=== PATIENT | male | born 1960 | race Caucasian/White ===

== ENCOUNTER 2017-01-23 04:34 | Emergency (ER) | payer MEDICAID ==
--- NOTE | 2017-01-23 06:20 | ER Document Report ---
ED General - General Chief Complaint: Shortness Of Breath Stated Complaint: DIFFICULTY BREATHING Mode of Arrival: Medic Information source: Patient, [facility] Records Notes: This is a 56-year-old male with a history of CHF hypertension and diabetes who presents via EMS for worsening orthopnea for the past 2 or 3 days. Patient has a history of poor medication compliance and tells me that he has been out of all of his medicines for the past several months. He states that he feels that he has fluid on his lungs when he lays flat. However, when he sitting up he says he has no shortness of breath. He denies any chest pain. He has had no fevers or chills. No cough or congestion. TRAVEL OUTSIDE OF THE [place] IN LAST 30 DAYS: No - Related Data Allergies/Adverse Reactions: No Known Allergies Allergy (Verified 08/13/16 09:02) Past Medical History - General Information source: Patient, [facility] Records - Social History Smoking Status: Former Smoker Chew tobacco use (# tins/day): No Frequency of alcohol use: None Drug Abuse: None Family History: CVA, DM Patient has suicidal ideation: No Patient has homicidal ideation: No - Past Medical History Cardiac Medical History: Reports: Hx Congestive Heart Failure, Hx Heart Attack - x 2, Hx Hypertension Denies: Hx Coronary Artery Disease Pulmonary Medical History: Denies: Hx Asthma, Hx Bronchitis, Hx COPD, Hx Pneumonia, Hx Tuberculosis Neurological Medical History: Denies: Hx Cerebrovascular Accident, Hx Seizures Endocrine Medical History: Reports: Hx Diabetes Mellitus Type 1, Hx Diabetes Mellitus Type 2 Renal/ Medical History: Denies: Hx Peritoneal Dialysis Musculoskeltal Medical History: Reports Hx Arthritis Infectious Medical History: Reports: Hx MRSA Past Surgical History: Reports: Hx Orthopedic Surgery - back,feet, ankle,left arm. Denies: Hx Pacemaker - Immunizations Hx Diphtheria, Pertussis, Tetanus Vaccination: Yes Review of Systems - Review of Systems Notes: REVIEW OF SYSTEMS: CONSTITUTIONAL : Denies fever, chills, or sweats. Denies recent illness. EENT: Denies eye, ear, throat, or mouth pain or symptoms. Denies nasal or sinus congestion. CARDIOVASCULAR: Denies chest pain. RESPIRATORY: Denies cough, cold, or chest congestion. Otherwise as per history of present illness GASTROINTESTINAL: Denies abdominal pain. Denies nausea, vomiting, or diarrhea. Denies constipation. GENITOURINARY: Denies difficulty urinating, painful urination, burning, frequency, or blood in urine. MUSCULOSKELETAL: Denies neck or back pain or joint pain or swelling. SKIN: Denies rash or skin lesions. HEMATOLOGIC : Denies easy bruising or bleeding. LYMPHATIC: Denies swollen, enlarged glands. NEUROLOGICAL: Denies altered mental status or loss of consciousness. Denies headache. PSYCHIATRIC: Denies anxiety or stress or depression. ALL OTHER SYSTEMS REVIEWED AND NEGATIVE. Physical Exam - Vital signs Vitals: Temp Pulse Resp BP Pulse Ox 98.7 F 89 16 98/69 L 99 01/23/17 04:47 01/23/17 04:47 01/23/17 04:47 01/23/17 04:47 01/23/17 04:47 - Notes Notes: PHYSICAL EXAMINATION: GENERAL: Thin, somewhat disheveled adult male who appears older stated age. Pleasant and conversant and in no acute distress. No conversational dyspnea HEAD: Atraumatic, normocephalic. EYES: Pupils equal round and reactive to light, extraocular movements intact, sclera anicteric, conjunctiva are normal. ENT: nares patent, oropharynx clear without exudates. Moist mucous membranes. NECK: Normal range of motion, supple without lymphadenopathy LUNGS: Breath sounds clear to auscultation bilaterally and equal. No wheezes rales or rhonchi. HEART: Regular rate and rhythm without murmurs ABDOMEN: Soft, nontender, normoactive bowel sounds. No guarding, no rebound. No masses appreciated. EXTREMITIES: Normal range of motion, no pitting or edema. No cyanosis. NEUROLOGICAL: Cranial nerves grossly intact. Normal speech. No gross focal motor or sensory deficits appreciated PSYCH: Normal mood, normal affect. SKIN: Warm, Dry, normal turgor, no rashes or lesions noted. Course - Re-evaluation Re-evalutation: 01/23/17 08:27 Patient reexamined. He remains asymptomatic in the emergency department. He is pleasant and conversant with no dyspnea. His lab evaluation and chest x-ray are reassuring. He does have signs of mild vascular congestion but is not in acute CHF at this point his primary problem is that he is out of his home medications for his chronic illnesses. He states he will be able to follow up with his primary physician on February 07 as he has just gotten insurance matters situated. He requests refill of current medications until that time. He also requests refill of his oxycodone however I discussed that I would not refill his chronic pain medicine at this time, and that that would have to come from his primary physician. It is noted that he has a mild troponin elevation but chart review reveals that his troponin is chronically elevated. He has had no chest pain. His repeat troponin had decreased. At this point I do not clinically suspect acute coronary syndrome. We discussed maintenance of his chronic medical problems and discuss strict return precautions to include chest pain or fever. He is very comfortable with this plan and all questions were fractured. - Vital Signs Vital signs: Temp Pulse Resp BP Pulse Ox 97.7 F 89 15 186/97 H 93 01/23/17 07:46 01/23/17 07:46 01/23/17 08:43 01/23/17 08:43 01/23/17 08:43 - Laboratory Result Diagrams: 01/23/17 04:53 01/23/17 04:53 Laboratory results interpreted by me: 01/23/17 01/23/17 01/23/17 04:53 04:53 04:53 RBC 3.39 L Hgb 9.3 L Hct 27.6 L RDW 14.9 H Sodium 136.4 L Glucose 258 H POC Glucose AST 15 L ALT 19 L NT-Pro-B Natriuret Pep 6210 H Albumin 3.4 L 01/23/17 04:58 RBC Hgb Hct RDW Sodium Glucose POC Glucose 264 H AST ALT NT-Pro-B Natriuret Pep Albumin - Diagnostic Test Radiology reviewed: Reports reviewed - Chest x-ray shows clearing from previous exam with mild vascular prominence and trace pleural fluid - EKG Interpretation by Me Additional EKG results interpreted by me: 01/23/17 07:04 EKG at 4:43 AM demonstrates sinus tachycardia at a rate of 100. There is a first-degree block. There are minimal ST changes laterally in V4 V5 and V6 which are not significantly changed from prior EKG. QRS and QTC intervals are within normal limits. There is no ST elevation noted Discharge - Discharge Clinical Impression: Noncompliance with medication regimen Anemia Qualifiers: Anemia type: unspecified type Qualified Code(s): D64.9 - Anemia, unspecified CHF (congestive heart failure) Qualifiers: Congestive heart failure type: systolic Congestive heart failure chronicity: acute on chronic Qualified Code(s): I50.23 - Acute on chronic systolic ( congestive) heart failure Hyperglycemia due to type 2 diabetes mellitus Qualifiers: Diabetes mellitus mcfp insulin use: with termite technician use Qualified Code(s): E11.65 - Type 2 diabetes mellitus with hyperglycemia; Z79.4 - group home (current ) use of insulin Hypertension Qualifiers: Hypertension type: essential hypertension Qualified Code(s): I10 - Essential ( primary) hypertension Condition: Stable Disposition: HOME, SELF-CARE Additional Instructions: As discussed, please resume your daily maintenance medications. A low-sodium diet is recommended secondary to your elevated blood pressure. Follow a diabetic diet and check your blood sugars daily as instructed. You should follow up with Dr. Tan as discussed as soon as you are able. Return to the ER for increasing shortness of breath, any chest pain, fevers, or any worsening symptoms or concerns. Prescriptions: Aspirin [Ecotrin] 81 mg PO DAILY PRN #1 pkg PRN Reason: Carvedilol [Coreg 3.125 mg Tablet] 3.125 mg PO BID #40 tablet Furosemide [Lasix] 40 mg PO DAILY #21 tablet Insulin Glargine,Hum.rec.anlog [Lantus] 12 unit SQ DAILY #3 vial Lisinopril 5 mg PO DAILY #21 tablet Forms: Elevated Blood Pressure
[2017-01-23 06:29] LABS: BLOOD UREA NITROGEN 19 mg/dL (7-20); CALCIUM 9.3 mg/dL (8.4-10.2); CARBON DIOXIDE 26 mmol/L (22-30); CHLORIDE 101 mmol/L (98-107); CREATININE RESULT 0.85 mg/dL (0.52-1.25); GLUCOSE 258 mg/dL (75-110); POTASSIUM 3.9 mmol/L (3.6-5.0); SODIUM 136.4 mmol/L (137-145)
[2017-01-23 06:30] LABS: ALANINE AMINOTRANSFERASE 19 U/L (21-72); ALBUMIN 3.4 g/dL (3.5-5.0); ALKALINE PHOSPHATASE 99 U/L (38-126); ANION GAP 9 (5-19); ASPARTATE AMINO TRANSFERASE 15 U/L (17-59); BILIRUBIN,TOTAL 0.4 mg/dL (0.2-1.3); CREATINE KINASE 96 U/L (55-170); TOTAL PROTEIN 6.5 g/dL (6.3-8.2)
[2017-01-23 06:33] LABS: ABSOLUTE BASOPHILS # (AUTO) 0.1 10^3/uL (0.0-0.2); ABSOLUTE EOSINOPHILS # (AUTO) 0.2 10^3/uL (0.0-0.6); ABSOLUTE LYMPHOCYTES (AUTO) 2.5 10^3/uL (0.5-4.7); ABSOLUTE MONOCYTES (AUTO) 0.9 10^3/uL (0.1-1.4); BASOPHILS % (AUTO) 1.2 % (0-2); EOSINOPHILS % (AUTO) 2.5 % (0-6); HEMATOCRIT 27.6 % (37.9-51.0); HEMOGLOBIN 9.3 g/dL (13.5-17.0); HGB HCT DIFFERENCE 0.3; LYMPHOCYTES % (AUTO) 25.2 % (13-45); MEAN CORPUSCULAR HEMOGLOBIN 27.5 pg (27.0-33.4); MEAN CORPUSCULAR HGB CONC 33.7 g/dL (32.0-36.0); MEAN CORPUSCULAR VOLUME 82 fl (80-97); MONOCYTES % (AUTO) 9.7 % (3-13); RED BLOOD COUNT 3.39 10^6/uL (4.35-5.55); RED CELL DISTRIBUTION WIDTH 14.9 % (11.5-14.0); SEGMENTED NEUTROPHILS % (AUTO) 61.4 % (42-78); WHITE BLOOD COUNT 9.8 10^3/uL (4.0-10.5)
[2017-01-23 06:41] LABS: CREATINE KINASE MB 2.37 ng/mL (<4.55)
[2017-01-23 06:44] LABS: TROPONIN I 0.083 ng/mL
[2017-01-23] MEDS ORDERED: FUROSEMIDE INJ/PF 20 MG/2 ML SDV IV ONE (07:01)
[2017-01-23] MEDS ORDERED: ASPIRIN 81 MG TABLET, CHEWABLE PO ONE (07:01)
[2017-01-23] MEDS ORDERED: INSULIN REG, HUMAN 100 UNIT/ML 3 ML VIAL (PYX) SUBCUT ONE (07:07)
[2017-01-23 08:52] VITALS: BP 186/97
--- NOTE | 2017-01-24 16:05 | EKG REPORT ---
SEVERITY:- ABNORMAL ECG - SINUS TACHYCARDIA FIRST DEGREE AV BLOCK : Confirmed by: Paola Talamantes MD 24-Jan-2017 16:04:29
== END 2017-01-23 08:52 | disposition home or self-care (01) ==
LOC: ER 04:34
DX: I11.0 Hypertensive heart disease with heart failure (principal); I50.23 Acute on chronic systolic (congestive) heart failure; J90 Pleural effusion, not elsewhere classified; D64.9 Anemia, unspecified; E11.65 Type 2 diabetes mellitus with hyperglycemia; Z91.14 Patient's other noncompliance with medication regimen; R74.8 Abnormal levels of other serum enzymes; I44.0 Atrioventricular block, first degree; R00.0 Tachycardia, unspecified; I25.2 Old myocardial infarction; J44.9 Chronic obstructive pulmonary disease, unspecified; Z87.891 Personal history of nicotine dependence; Z87.01 Personal history of pneumonia (recurrent); Z86.14 Personal history of Methicillin resistant Staphylococcus aureus infection
CPT/HCPCS: 93005; 99285; 96374; 36415; 82553; 82962; 82550; 85025; 80053; 84484; 83880; 71020; 93010; J1940; J1815

== ENCOUNTER → 2017-03-25 | Outpatient (CLI) | payer MEDICAID | LOC: OD 11:35 | PROVIDERS: ATTEND Family Medicine | DX: M51.37 Other intervertebral disc degeneration, lumbosacral region (principal) | CPT/HCPCS: 72110 ==

== ENCOUNTER 2017-05-25 20:38 | Inpatient (IN) | payer MEDICAID ==
[2017-05-25 21:07] LABS: ABSOLUTE BASOPHILS # (AUTO) 0.1 10^3/uL (0.0-0.2); ABSOLUTE EOSINOPHILS # (AUTO) 0.3 10^3/uL (0.0-0.6); ABSOLUTE LYMPHOCYTES (AUTO) 2.1 10^3/uL (0.5-4.7); ABSOLUTE NEUT (AUTO) 5.5 10^3/uL (1.7-8.2); BASOPHILS % (AUTO) 1.1 % (0-2); EOSINOPHILS % (AUTO) 3.5 % (0-6); HEMATOCRIT 21.1 % (37.9-51.0); HGB HCT DIFFERENCE -0.4; LYMPHOCYTES % (AUTO) 23.2 % (13-45); MEAN CORPUSCULAR HEMOGLOBIN 27.3 pg (27.0-33.4); MEAN CORPUSCULAR HGB CONC 32.7 g/dL (32.0-36.0); MEAN CORPUSCULAR VOLUME 83 fl (80-97); MONOCYTES % (AUTO) 11.5 % (3-13); RED BLOOD COUNT 2.53 10^6/uL (4.35-5.55); RED CELL DISTRIBUTION WIDTH 16.2 % (11.5-14.0); SEGMENTED NEUTROPHILS % (AUTO) 60.7 % (42-78); WHITE BLOOD COUNT 9.1 10^3/uL (4.0-10.5)
[2017-05-25 21:11] LABS: HEMOGLOBIN 6.9 g/dL (13.5-17.0)
--- NOTE | 2017-05-25 21:17 | ER Document Report ---
ED General - General Mode of Arrival: Ambulatory Information source: Patient TRAVEL OUTSIDE OF THE [place] IN LAST 30 DAYS: No - HPI Onset: Just prior to arrival - Refer to HPI notes <MAGDA CARMONA - Last Filed: 05/26/17 01:22> <RICKEIBERTRAM - Last Filed: 05/26/17 04:28> - General Chief Complaint: Shortness Of Breath Stated Complaint: SHORTNESS OF BREATH Notes: Patient is a 57 year old male presenting to the emergency department for difficulty breathing with a history of CHF. Patient has had shortness of breath since last night. Patient's dyspnea progressed today along with some chest pain around 17:00. Patient was brought to the ED via EMS. Patient's shortness of breath is worsened with activity and laying flat. Patient takes 40 mg of lasix daily. Patient states he has blockages of his aorta bilaterally. Patient is being evaluated for this with diagnostic testing to test for this for possible surgery. Patient has some increased lower extremity edema and has pain in his legs when he walks. Patient is a smoker. Patient has a history of CHF, insulin dependent diabetic, hypertension, and DC x2. Patient had a stress test last May. Patient has no history of stents or a recent catheterization. Patient's concrete worker is Dr. Dias and his PCP is Dr. Tan. (MAGDA CARMONA) - Related Data Allergies/Adverse Reactions: No Known Allergies Allergy (Verified 08/13/16 09:02) Past Medical History - General Information source: Patient - Social History Smoking Status: Smoker,Current Status Unk Family History: CVA, DM - Past Medical History Cardiac Medical History: Reports: Hx Congestive Heart Failure, Hx Heart Attack - x 2, Hx Hypertension Endocrine Medical History: Reports: Hx Diabetes Mellitus Type 1, Hx Diabetes Mellitus Type 2 Musculoskeltal Medical History: Reports Hx Arthritis Infectious Medical History: Reports: Hx MRSA Past Surgical History: Reports: Hx Orthopedic Surgery - back,feet, ankle,left arm - Immunizations Hx Diphtheria, Pertussis, Tetanus Vaccination: Yes <MAGDA CARMONA - Last Filed: 05/26/17 01:22> Review of Systems - Review of Systems Constitutional: No symptoms reported EENT: No symptoms reported Cardiovascular: No symptoms reported Respiratory: See HPI, Cough, Short of breath Gastrointestinal: No symptoms reported Genitourinary: No symptoms reported Male Genitourinary: No symptoms reported Musculoskeletal: No symptoms reported Skin: No symptoms reported Hematologic/Lymphatic: No symptoms reported Neurological/Psychological: No symptoms reported -: Yes All other systems reviewed and negative <RIANAJOONMAGDA - Last Filed: 05/26/17 01:22> Physical Exam <RIANAJOONMAGDA - Last Filed: 05/26/17 01:22> <BERTRAM DAMIAN - Last Filed: 05/26/17 04:28> - Vital signs Vitals: Resp Pulse Ox 18 95 05/25/17 20:53 05/25/17 20:53 - Notes Notes: GENERAL: Alert, interacts well. Mild distress. HEAD: Normocephalic, atraumatic. EYES: Appear normal. Pupils equal, round, and reactive to light. ENT: Moist mucus membranes, tongue midline. NECK: Full range of motion. Supple. Trachea midline. LUNGS: Rhonchi with occasional wheezes. No respiratory distress. HEART: Regular rate and rhythm. No murmurs, gallops, or rubs. ABDOMEN: Soft, non-tender. Non-distended. Normal bowel sounds. RECTAL: Normal rectal exam, no sign of blood. EXTREMITIES: Moves all 4 extremities spontaneously. Normal strength. Edema. Symmetrical dorsalis pedis and femoral pulses bilaterally. NEUROLOGICAL: Alert and oriented x3. Normal speech. No focal neurological deficits. GSC 15. PSYCH: Normal affect, normal mood. SKIN: Warm, dry, normal turgor. Scratch mccoy and scabbing to the anterior calf bilaterally. (MAGDA CARMONA) Course - Laboratory Result Diagrams: 05/25/17 20:45 05/25/17 20:45 - Consults Dr. Sams Time consulted: 00:30 <MAGDA CARMONA - Last Filed: 05/26/17 01:22> - Laboratory Result Diagrams: 05/25/17 20:45 05/26/17 00:35 <BERTRAM DAMIAN - Last Filed: 05/26/17 04:28> - Re-evaluation Re-evalutation: 05/25/17 23:58 Re-evaluated patient after labs showing a low Hgb. Patient states he did have some rectal bleeding last year he was admitted. Patient states he has black stools due to his iron pills but states he does not notice any rectal bleeding or bloody stools. (MAGDA CARMONA) 05/26/17 00:33 Patient presents the emergency department chief complaint of shortness of breath orthopnea and history of congestive heart failure. 58-year-old male patient history of CHF insulin-dependent diabetes on Lasix 40 mg a day began increasingly short of breath last night with orthopnea and had to sleep in a chair. Had some chest discomfort last night and then again this evening he described as a tightness but it has resolved on ED arrival. He did not take any aspirin or nitroglycerin. He has a concrete worker here in town Dr. Weiss. Positive history of DC no stents or CABG had a stress test last May but never had a heart cath since then. He says he has recently been tested because he got blockages into his legs from peripheral vascular disease. On examination he is not hypoxic he is awake alert no acute respiratory distress. Mucous members are pale heart rate and rhythm is slightly tachycardic no murmur gallop rub lungs consultation bilateral wheezes rales rhonchi with occasional wheeze. Abdomen is soft good femoral pulses dorsalis pulses posterior tibial symmetrical. Guaiac sent to the lab guaiac was not actively bloody hemoglobin came back at 6.9 and 21 patient says he thinks that he had that last year has no idea why occasionally drinks alcohol also the BNP of 5580 wrote for transfusing 2 units of blood and 60 of Lasix IV and will admit for further assessment and evaluation 05/26/17 01:09 (BERTRAM DAMIAN) - Vital Signs Vital signs: Temp Pulse Resp BP Pulse Ox 97.9 F 100 20 113/67 94 05/26/17 02:16 05/26/17 03:24 05/26/17 02:16 05/26/17 02:16 05/26/17 02:16 - Laboratory Laboratory results interpreted by ar: 05/25/17 05/25/17 05/25/17 20:45 20:45 20:45 RBC 2.53 L Hgb 6.9 L Hct 21.1 L RDW 16.2 H Potassium Chloride 114 H Carbon Dioxide 18 L BUN 33 H Creatinine Est GFR (Non-Af Amer) Glucose 130 H Calcium 8.0 L AST 11 L Creatine Kinase 186 H NT-Pro-B Natriuret Pep 5880 H Total Protein 6.0 L Albumin 3.1 L Crossmatch 05/26/17 05/26/17 00:35 00:35 RBC Hgb Hct RDW Potassium 5.3 H D Chloride 110 H Carbon Dioxide 20 L BUN 37 H Creatinine 1.37 H Est GFR (Non-Af Amer) 54 L Glucose 183 H Calcium AST Creatine Kinase NT-Pro-B Natriuret Pep Total Protein Albumin Crossmatch See Detail - Consults Dr. Sams Reason for consultation: 05/26/17 00:[address] Sams for possible admission; he will call back. 05/26/17 01:[address] Sams, discussed patient, he will be admitted to tele/ observation. (MAGDA CARMONA) Critical Care Note - Critical Care Note Total time excluding time spent on procedures (mins): 65 <BERTRAM DAMIAN - Last Filed: 05/26/17 04:28> Discharge <MAGDA CARMONA - Last Filed: 05/26/17 01:22> - Discharge Admitting Provider: Hospitalist Unit Admitted: Telemetry <BERTRAM DAMIAN - Last Filed: 05/26/17 04:28> - Discharge Clinical Impression: Acute CHF exacerbation, Anemia requiring blood transfusion Condition: Stable Disposition: ADMITTED INPATIENT Scribe Attestation: 05/26/17 01:08 I personally performed the services described in the documentation reviewed the documentation recorded by my scribe in my presence and it accurately and completely records my words and actions (BERTRAM DAMIAN) Scribe Documentation - Scribe Written by Thaddeusibe:: Wagner Wynn 05/26/17 00:00 acting as scribe for :: Rickie <MAGDA CARMONA - Last Filed: 05/26/17 01:22>
--- NOTE | 2017-05-25 21:19 | RADIOLOGY REPORT (SQ) ---
EXAM DESCRIPTION: CHEST SINGLE VIEW COMPLETED DATE/TIME: 05/25/2017 9:08 pm REASON FOR STUDY: dyspnea COMPARISON: 01/23/2017 EXAM PARAMETERS: NUMBER OF VIEWS: One view. TECHNIQUE: Single frontal radiographic view of the chest acquired. RADIATION DOSE: NA LIMITATIONS: None. FINDINGS: LUNGS AND PLEURA: No opacities, masses or pneumothorax. No pleural effusion. MEDIASTINUM AND HILAR STRUCTURES: No masses. Contour normal. HEART AND VASCULAR STRUCTURES: Heart size slightly enlarged. Mild vascular congestion. BONES: No acute findings. HARDWARE: None in the chest. OTHER: No other significant finding. IMPRESSION: Mild vascular congestion. TECHNICAL DOCUMENTATION: JOB ID: [id number]
[2017-05-25 21:28] LABS: ALANINE AMINOTRANSFERASE 27 U/L (21-72); ALBUMIN 3.1 g/dL (3.5-5.0); ALKALINE PHOSPHATASE 79 U/L (38-126); ANION GAP 9 (5-19); ASPARTATE AMINO TRANSFERASE 11 U/L (17-59); BILIRUBIN,DIRECT 0.2 mg/dL (0.0-0.4); BILIRUBIN,TOTAL 0.2 mg/dL (0.2-1.3); BLOOD UREA NITROGEN 33 mg/dL (7-20); CARBON DIOXIDE 18 mmol/L (22-30); CHLORIDE 114 mmol/L (98-107); CREATINE KINASE 186 U/L (55-170); CREATININE RESULT 1.12 mg/dL (0.52-1.25); GLUCOSE 130 mg/dL (75-110); POTASSIUM 4.3 mmol/L (3.6-5.0)
[2017-05-25 21:38] LABS: CREATINE KINASE MB 3.98 ng/mL (<4.55)
[2017-05-25 21:42] LABS: TROPONIN I 0.069 ng/mL
--- NOTE | 2017-05-25 22:43 | EKG REPORT ---
SEVERITY:- ABNORMAL ECG - SINUS RHYTHM FIRST DEGREE AV BLOCK REPOL ABNRM SUGGESTS ISCHEMIA, LATERAL LEADS : Confirmed by: Asuncion Addison 25-May-2017 22:43:07
[2017-05-25] MEDS ORDERED: NORMAL SALINE 250 ML IV PRN ×2 (23:54)
[2017-05-26] MEDS ORDERED: FUROSEMIDE INJ/PF 100 MG/10 ML SDV IV ONE (00:32)
[2017-05-26] MEDS ORDERED: GLUCAGON,HUMAN RECOMB 1 MG INJ IM PRN (03:30)
[2017-05-26] MEDS ORDERED: DEXTROSE 40% GEL 15 GM TUBE PO PRN ×2 (03:30)
[2017-05-26] MEDS ORDERED: DEXTROSE 50%-WATER 25 GM/50 ML DISP.SYRIN IV PRN ×2 (03:30)
[2017-05-26] MEDS ORDERED: ACETAMINOPHEN 325 MG TABLET PO PRN (03:39)
[2017-05-26] MEDS ORDERED: MAGNESIUM HYDROXIDE SUSP 30 ML UDCUP PO PRN (03:39)
[2017-05-26] MEDS ORDERED: NICOTINE 21 MG/24 HR PATCH.TD24 TD PRN (03:40)
[2017-05-26 03:44] LABS: ADD ON TESTING BLD IN LAB ACKNOWLEDGE
[2017-05-26] MEDS ORDERED: PROMETHAZINE HCL 25 MG TABLET PO PRN (03:45)
[2017-05-26 03:59] LABS: ANION GAP 11 (5-19); BLOOD UREA NITROGEN 37 mg/dL (7-20); CALCIUM 9.3 mg/dL (8.4-10.2); CARBON DIOXIDE 20 mmol/L (22-30); CHLORIDE 110 mmol/L (98-107); CREATININE RESULT 1.37 mg/dL (0.52-1.25); GLUCOSE 183 mg/dL (75-110); MAGNESIUM 2.1 mg/dL (1.6-2.3); SODIUM 141.2 mmol/L (137-145)
--- NOTE | 2017-05-26 04:05 | PDOC H&P ---
History of Present Illness Admission Date/PCP: 05/26/17 01:17 CHARITY TOURE, Cardiology Dr. Weiss Patient complains of: Difficulty breathing History of Present Illness: SUSAN MOREJON is a 57 year old male with known underlying combined systolic and diastolic congestive heart failure, with echocardiogram May of last year revealing an ejection fraction of 35%, and grade 3/4 diastolic congestive heart failure, known coronary artery disease, having suffered a previous [place], hypertension, tobacco dependency, 1-1/2 pack cigarettes per day, possible hyperlipidemia, and type 1 diabetes mellitus, along with chronic anemia , apparently of uncertain source who presents to the emergency room for evaluation of approximately 24 hour history of progressive shortness of breath, in particular with much of any exertion or lying flat. Patient has been discussed with emergency room physician who evaluated the patient. Brief chest discomfort last evening and the evening of the just prior to coming to the emergency room. Chest discomfort free now. Normally takes 40 mg of Lasix daily. Denies weight gain or ankle swelling. States he has chronic dark stools from iron. No change in these. No blood from below. According to his description, he has had neither upper nor lower endoscopy for evaluation of his chronic anemia. 2 units packed RBC transfusion has been ordered by the emergency room physician. Hospitalized on our service the through the of last August with final diagnoses including acute respiratory failure with hypoxia secondary to congestive heart failure along with E. coli urinary tract infection and anemia. Received 2 units packed cells transfusion during that hospital stay. Discharge summary Reviewed. Laboratory results are listed in Answer.To and are reviewed. X-ray summary results are listed below, with full report(s) reviewed. . EKG reviewed and compared to prior tracing from January 23 of this year. Social history/personal habits: . Lives with sister. 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 Pack and half cigarettes per day. Six pack of beer per week. Denies illicit drug use. No known drug allergies. Home medications initially autopopulated into [facility] may not accurately reflect patient's true medications, dosages, and/or frequencies. insulator technician to reconcile medications. Unfortunately, patient not certain of all medications/dosages/frequencies. REVIEW OF SYSTEMS: Constitutional: No fever or chills. Eyes: Wears glasses. ENT: No swallowing problems or complaints. Partial hearing loss. Pulmonary: See history and present illness. Cardiovascular: See history and present illness. Gastrointestinal: No current complaints, including nausea or vomiting. Skin: No current complaints, including rashes. Hematologic: Denies easy bruising. Neurologic: No current complaints, including numbness or tingling. Musculoskeletal: Joint pain from arthritis. Psychiatric: Denies anxiety or depression. Endocrine: No current complaints, including polyuria. Genitourinary: No current complaints, including dysuria. PHYSICAL EXAMINATION: 5 feet 6 inches tall. 71.8 kg. BMI 25.5 kg/m.Temperature 97.9. Blood pressure 113/67. Pulse 95 and regular. Respirations are 20 and unlabored. 94 % saturation on room air. Thin pale chronically ill-appearing male who appears a number of years older than his stated age. Pleasant awake alert and cooperative. No obvious distress other than mildly anxious. Skin is warm and dry. No grossly obvious evidence of rash in areas of skin examined. No subcutaneous nodules palpated. ENT: Hearing grossly normal to normal conversation. Tongue midline on protrusion pink and moist. Eyes: No scleral icterus. Pupils equal and reactive to light at 4 mm. Pale conjunctivae. Neck is supple and nontender to gentle active range of motion and palpation. Midline trachea. No palpable thyroid nodule mass enlargement or tenderness. Lymphatic: No palpable cervical or clavicular nodes. Neck and lymphatic exams limited by patient body habitus. Psychiatric: Fair to reasonable insight into acute and chronic medical issues. Oriented to time location and why here. Lungs: Auscultation reveals equal breath sounds bilaterally. No use of accessory respiratory muscles. Faintly coarse breath sounds, primarily in late expiratory phase bilaterally. Cardiovascular: Heart regular rate and rhythm, without gallop murmur or rub. No carotid or abdominal aortic bruits. No ankle edema. Abdomen:soft slightly distended nontender with positive bowel sounds. Unable to adequately evaluate abdomen for masses or organomegaly due to distention. Extremities: No calf tenderness to compression. No grossly obvious visual evidence of calf swelling. Gentle manipulation of lower extremities fails to reveal any obvious evidence of injury or instability to knees hips or ankles. Neurologic: Moves upper extremities grossly normally. Patellar reflexes absent. Dorsiflexion and plantarflexion of feet 5 / 5 and symmetric. Past Medical History Cardiac Medical History: Reports: Congestive Heart Failure, Coronary Artery Disease, Myocardial Infarction - x 2, Hyperlipidema - Possible, Hypertension Denies: Atrial Fibrillation, DVT, Pulmonary Embolism Pulmonary Medical History: Denies: Asthma, Bronchitis, Chronic Obstructive Pulmonary Disease (COPD), Pneumonia, Sleep Apnea, Tuberculosis EENT Medical History: Reports: Eyes - Glasses, Ears - Partial hearing loss Denies: Throat Neurological Medical History: Denies: Hemorrhagic CVA, Ischemic CVA, Seizures Endocrine Medical History: Reports: Diabetes Mellitus Type 1, Diabetes Mellitus Type 2 Denies: Hyperthyroidism, Hypothyroidism Renal/ Medical History: Reports: None GI Medical History: Denies: Cirrhosis, Gastroesophageal Reflux Disease, Hepatitis, Peptic Ulcer Disease Musculoskeltal Medical History: Reports: Arthritis Skin Medical History: Reports: None Psychiatric Medical History: Reports: Tobacco Dependency Denies: Alcohol Dependency, Depression, General Anxiety Disorder, Substance Abuse Hematology: Reports: Anemia - Chronic Infectious Medical History: Reports: Methicillin-Resistant Staph Aureus Denies: Hepatitis B, Hepatitis C Past Surgical History Past Surgical History: Reports: Orthopedic Surgery - Left forearm Denies: Pacemaker Social History Information Source: Patient, Emergency Med Personnel, [facility] Records Lives with: Family - Sister and [id number] Smoking Status: Current Every Day Smoker Frequency of Alcohol Use: Social - 6 pack of beer per week Hx Recreational Drug Use: No Drugs: None Hx Prescription Drug Abuse: No - Advance Directive Resuscitation Status: Full Code Surrogate healthcare decision maker:: Sister Family History Family History: CVA, DM Parental Family History Reviewed: Yes - Mother of cancer, father of myocardial infarction. Children Family History Reviewed: NA Sibling(s) Family History Reviewed.: Yes - Siblings are diabetic. Medication/Allergy Home Medications: Aspirin [Adult Low Dose Aspirin EC] 81 mg PO DAILY 05/26/17 Atorvastatin Calcium [Lipitor 40 mg Tablet] 40 mg PO DAILY 05/26/17 Carvedilol [Coreg 3.125 mg Tablet] 3.125 mg PO BID 05/26/17 Furosemide [Lasix] 40 mg PO DAILY 05/26/17 Gabapentin [Neurontin 300 mg Capsule] 600 mg PO Q12 05/26/17 Insulin Glargine,Hum.rec.anlog [Lantus Insulin 100 Unit/1 ml 10 ml] 12 units SQ QHS 05/26/17 Linagliptin [Tradjenta] 5 mg PO DAILY 05/26/17 Lisinopril [Zestril] 10 mg PO DAILY 05/26/17 Oxycodone HCl/Acetaminophen [Percocet 7.5-325 mg Tablet] 1 tab PO Q6HP PRN 05/26 Sildenafil Citrate [Sildenafil] 20 mg PO DAILY 05/26/17 Nicotine [Nicoderm 21 mg/24 Hr Transderm Patch] 1 each TD DAILYP PRN patch.td24 05/28/17 Allergies/Adverse Reactions: No Known Allergies Allergy (Verified 08/13/16 09:02) Physical Exam Vital Signs: Temp Pulse Resp BP Pulse Ox 97.9 F 95 20 113/67 94 05/26/17 02:16 05/26/17 02:16 05/26/17 02:16 05/26/17 02:16 05/26/17 02:16 Intake & Output 05/25/17 05/26/17 05/27/17 00:59 00:59 00:59 Intake Total 0 Balance 0 Results Impressions: Chest X-Ray 05/25/17 20:53 IMPRESSION: Mild vascular congestion. Assessment & Plan - Diagnosis (1) Acute on chronic combined systolic (congestive) and diastolic (congestive) heart failure Is this a current diagnosis for this admission?: YesPlan: Likely due to underlying anemia. No evidence of acute coronary syndrome. Patient will be admitted under CHF protocol. Serial troponins. Lipid panel. Consider cardiology consult. Consider echocardiogram, pending recommendations of project coordinator. Patient is a full code. I have strongly encouraged patient not to get out of bed without notifying staff , to avoid a fall with injury. Knee high SCDs for DVT prophylaxis; with heme positive stool and transfusion requiring anemia, we will forego Lovenox or heparin. Impression and plans were discussed with patient, who concurs. Time spent in evaluation and management of patient: 68 minutes (2) Elevated troponin Is this a current diagnosis for this admission?: Yes (3) Generalized weakness Is this a current diagnosis for this admission?: Yes (4) Heme + stool Is this a current diagnosis for this admission?: YesPlan: GI consult if gastroenterology available. (5) Anemia Qualifiers: Anemia type: other cause Is this a current diagnosis for this admission?: YesPlan: 2 units packed cells ordered by ER physician; first unit currently being transfused. (6) Diabetes mellitus type 1 Qualifiers: Diabetes mellitus complication status: without complication Qualified Code(s): E10.9 - Type 1 diabetes mellitus without complications Is this a current diagnosis for this admission?: YesPlan: Clear liquid diet, in case bowel prep necessary. Accu-Cheks with appropriate sliding scale coverage. Resume home medications as appropriate once these have been determined and reviewed. (7) Tobacco dependency Is this a current diagnosis for this admission?: YesPlan: As needed nicotine patch. - Inpatient Certification Based on my medical assessment, after consideration of the patient's comorbidities, presenting symptoms, or acuity I expect that the services needed warrant INPATIENT care.: Yes I certify that my determination is in accordance with my understanding of Medicare's requirements for reasonable and necessary INPATIENT services [42 CFR 412.3e].: Yes Medical Necessity: Need Close Monitoring Due to Risk of Patient Decompensation, Need For Continuous Telemetry Monitoring, Risk of Complication if Not Cared For in Hospital Post Hospital Care: D/C or Transfer Summary
[2017-05-26 04:10] LABS: POTASSIUM 5.3 mmol/L (3.6-5.0)
[2017-05-26 04:18] LABS: CHOLESTEROL 78.65 mg/dL (0-200); Direct HDL 26 mg/dL (>40); TRIGLYCERIDES 97 mg/dL (<150)
[2017-05-26 04:29] LABS: DIRECT LDL 30 mg/dL (<100)
[2017-05-26 04:40] LABS: ALCOHOL < 10 mg/dL (NONE DETECTED)
[2017-05-26] MEDS ORDERED: IPRATROPIUM/ALBUTEROL 0.5-2.5 MG/3 ML AMPUL NEB PRN (05:35)
[2017-05-26 06:05] LABS: ANION GAP 12 (5-19); BLOOD UREA NITROGEN 38 mg/dL (7-20); CALCIUM 9.4 mg/dL (8.4-10.2); CARBON DIOXIDE 20 mmol/L (22-30); CHLORIDE 108 mmol/L (98-107); CREATININE RESULT 1.34 mg/dL (0.52-1.25); GLUCOSE 261 mg/dL (75-110); POTASSIUM 5.3 mmol/L (3.6-5.0); SODIUM 140.1 mmol/L (137-145)
[2017-05-26 06:24] LABS: ARTERIAL BLOOD BASE EXCESS -4.3 mmol/L; ARTERIAL BLOOD O2 SATURATION 93.6 % (94-98)
--- NOTE | 2017-05-26 07:56 | RADIOLOGY REPORT (SQ) ---
EXAM DESCRIPTION: CHEST SINGLE VIEW COMPLETED DATE/TIME: 05/26/2017 7:34 am REASON FOR STUDY: resp distress COMPARISON: 05/25/2017. NUMBER OF VIEWS: One view. TECHNIQUE: Single frontal radiographic view of the chest acquired. LIMITATIONS: None. FINDINGS: LUNGS AND PLEURA: No opacities, masses or pneumothorax. No pleural effusion. MEDIASTINUM AND HILAR STRUCTURES: No masses or contour abnormality. HEART AND VASCULATURE: Cardiac enlargement. Mild vascular congestion. BONES: No acute findings. HARDWARE: None in the chest. OTHER: No other significant finding. IMPRESSION: CARDIAC ENLARGEMENT. MILD VASCULAR CONGESTION. TECHNICAL DOCUMENTATION: JOB ID: [id number] [employer]- All Rights Reserved
[2017-05-26] MEDS ORDERED: FUROSEMIDE INJ/PF 40 MG/4 ML SDV IV ONE ×2 (08:12→10:00)
[2017-05-26] MEDS: INSULIN LISPRO 100 UNIT/ML 3 ML VIAL SUBCUT PRN ×4 (08:29→22:05)
[2017-05-26 11:01] LABS: APPEARANCE,URINE CLEAR; BILIRUBIN,URINE NEGATIVE (NEGATIVE); GLUCOSE, URINE NEGATIVE (NEGATIVE); KETONES,URINE NEGATIVE (NEGATIVE); LEUKOCYTE ESTERASE,URINE TRACE (NEGATIVE); NITRITE,URINE NEGATIVE (NEGATIVE); PROTEIN,URINE 30 mg/dL (NEGATIVE); URINE SPECIFIC GRAVITY 1.008; UROBILINOGEN,URINE NEGATIVE mg/dL (<2.0)
[2017-05-26] MEDS: DOCUSATE SODIUM 100 MG CAPSULE PO SCH (11:02)
[2017-05-26 11:20] LABS: URINE BARBITURATES SCREEN NEGATIVE; URINE METHADONE SCREEN NEGATIVE; URINE OPIATES LOW NEGATIVE; URINE PHENCYCLIDINE SCREEN NEGATIVE
--- NOTE | 2017-05-26 11:25 | PDOC PROGRESS REPORT ---
Subjective Progress Note for:: 05/26/17 Subjective:: Complains of shortness of breath. Denies any chest pain. Physical Exam Vital Signs: Temp Pulse Resp BP Pulse Ox 97.5 F 98 12 119/67 91 L 05/26/17 08:53 05/26/17 08:53 05/26/17 08:53 05/26/17 08:53 05/26/17 08:53 Intake & Output 05/25/17 05/26/17 05/27/17 06:59 06:59 06:59 Intake Total 475 0 Output Total 0 Balance 475 0 Weight 69.9 kg General appearance: PRESENT: mild distress Eye exam: PRESENT: conjunctiva pink. ABSENT: scleral icterus Mouth exam: PRESENT: moist, tongue midline Neck exam: PRESENT: JVD Respiratory exam: PRESENT: rales - Basilar rales. ABSENT: rhonchi, wheezes Cardiovascular exam: PRESENT: RRR. ABSENT: diastolic murmur, rubs, systolic murmur GI/Abdominal exam: PRESENT: normal bowel sounds, soft. ABSENT: distended, guarding, mass, organolmegaly, rebound, tenderness Extremities exam: PRESENT: pedal edema, +1 edema. ABSENT: calf tenderness, clubbing Neurological exam: PRESENT: alert, awake, oriented to person, oriented to place , oriented to time, oriented to situation, CN II-XII grossly intact. ABSENT: motor sensory deficit Psychiatric exam: PRESENT: appropriate affect Skin exam: PRESENT: dry, intact, warm. ABSENT: cyanosis, rash Results Laboratory Results: 05/26/17 05:39 05/26/17 05/26/17 05/26/17 05:39 06:05 09:20 Carbonic Acid 1.41 H HCO3/H2CO3 Ratio 15:1 ABG pH 7.29 L ABG pCO2 46.7 H ABG pO2 75.4 L ABG HCO3 22.1 ABG O2 Saturation 93.6 L ABG Base Excess -4.3 FiO2 6 LITERS Sodium 140.1 Potassium 5.3 H Chloride 108 H Carbon Dioxide 20 L Anion Gap 12 BUN 38 H Creatinine 1.34 H Est GFR ( Amer) > 60 Est GFR (Non-Af Amer) 55 L Glucose 261 H Calcium 9.4 Urine Color STRAW Urine Appearance CLEAR Urine pH 5.0 Ur Specific [place] 1.008 Urine Protein 30 H Urine Glucose (UA) NEGATIVE Urine Ketones NEGATIVE Urine Blood SMALL H Urine Nitrite NEGATIVE Ur Leukocyte Esterase TRACE H Urine WBC (Auto) 4 Urine RBC (Auto) 4 05/26/17 05:39 Troponin I 0.071 Impressions: Chest X-Ray 05/26/17 00:00 IMPRESSION: CARDIAC ENLARGEMENT. MILD VASCULAR CONGESTION. Assessment & Plan - Diagnosis (1) Acute on chronic combined systolic (congestive) and diastolic (congestive) heart failure Is this a current diagnosis for this admission?: YesPlan: Patient presented with significant anemia. He is now getting a transfusion and has had some worsening in his respiratory status. We will give an additional dose of IV Lasix. We will continue the BiPAP. Because of his worsening respiratory status we will transfer to the [facility] level care (2) Elevated troponin Is this a current diagnosis for this admission?: YesPlan: Likely secondary to the underlying congestive heart failure. The patient's troponins are elevated but have been flat. (3) COPD (chronic obstructive pulmonary disease) Qualifiers: COPD type: unspecified COPD Qualified Code(s): J44.9 - Chronic obstructive pulmonary disease, unspecified Is this a current diagnosis for this admission?: YesPlan: With nebulizers as needed. (4) Chronic pain disorder Is this a current diagnosis for this admission?: Yes (5) Diabetes mellitus Qualifiers: Diabetes mellitus type: type 2 Diabetes mellitus complication status: with neurologic complications Diabetes mellitus complication detail: with polyneuropathy Diabetes mellitus buttermaker continuous churn insulin use: with nursing home use Qualified Code(s): E11.42 - Type 2 diabetes mellitus with diabetic polyneuropathy; Z79.4 - jail (current) use of insulin Is this a current diagnosis for this admission?: YesPlan: Continue with sliding scale insulin. (6) Hyperlipidemia Qualifiers: Hyperlipidemia type: unspecified Qualified Code(s): E78.5 - Hyperlipidemia, unspecified Is this a current diagnosis for this admission?: Yes (7) Hypertension Qualifiers: Hypertension type: essential hypertension Qualified Code(s): I10 - Essential (primary) hypertension Is this a current diagnosis for this admission?: YesPlan: Blood pressures are stable. (8) Coronary artery disease Qualifiers: Coronary Disease-Associated Artery/Lesion type: craig artery [place] vs. transplanted heart: craig heart Associated angina: angina presence unspecified Qualified Code(s): I25.10 - Atherosclerotic heart disease of craig coronary artery without angina pectoris Is this a current diagnosis for this admission?: YesPlan: Denies any chest pain. Patient has elevated troponins but does not have any evidence for an acute coronary syndrome (9) Anemia Qualifiers: Anemia type: unspecified type Qualified Code(s): D64.9 - Anemia, unspecified Is this a current diagnosis for this admission?: YesPlan: Patient will be evaluated by GI for the heme positive stools and anemia. Patient currently is not stable enough for a colonoscopy unless it is emergent. - Time Time Spent with patient: 25-34 minutes - Inpatient Certification Medical Necessity: Need Close Monitoring Due to Risk of Patient Decompensation
[2017-05-26 13:21] LABS: HEMATOCRIT 30.4 % (37.9-51.0); HGB HCT DIFFERENCE -0.4; MEAN CORPUSCULAR HEMOGLOBIN 27.5 pg (27.0-33.4); MEAN CORPUSCULAR HGB CONC 32.7 g/dL (32.0-36.0); MEAN CORPUSCULAR VOLUME 84 fl (80-97); RED BLOOD COUNT 3.63 10^6/uL (4.35-5.55); WHITE BLOOD COUNT 13.4 10^3/uL (4.0-10.5)
[2017-05-26 13:58] LABS: BASOPHILS % (MANUAL) 0 % (0-2); EOSINOPHILS % (MANUAL) 0 % (0-6); LYMPHOCYTES % (MANUAL) 3 % (13-45); TOTAL CELLS COUNTED 100
[2017-05-26 14:00] LABS: ANISOCYTOSIS 2+; POIKILOCYTOSIS SLIGHT; TOXIC GRANULATION SLIGHT
[2017-05-26 14:01] LABS: OVALOCYTES SLIGHT
--- NOTE | 2017-05-26 17:47 | PDOC CONSULTATION ---
Consultation Consult Date: 05/26/17 History of Present Illness Admission Date/PCP: 05/26/17 03:39 CHARITY TOURE DO History of Present Illness: This is a 57-year-old patient who was admitted on 05/26/2017 with difficulty breathing. Consultation was requested for anemia. He has a chronic history of anemia with a hemoglobin of 9.9 in August 2016, 9.3 in January 2017. On admission this time his hemoglobin was 6.9 with normal red cell indices. He denies abdominal pain, nausea, or vomiting. His bowels move regularly but his stool has been dark for months since he was placed on iron. He denies bright red blood per rectum. His stool was positive for occult blood on admission. He received 2 units of blood overnight and developed more shortness of breath diagnosed as CHF fluid overload. He is currently on a BiPAP and is doing better. He was admitted to the hospital about a year ago for CHF and was in house for about 2-1/2 months between [place] and [place]. He has never had an EGD or colonoscopy. A colonoscopy was attempted last year but he did not tolerate the prep Past Medical History Cardiac Medical History: Reports: Congestive Heart Failure, Coronary Artery Disease, Myocardial Infarction - x 2, Hyperlipidema - Possible, Hypertension Denies: Atrial Fibrillation, DVT, Pulmonary Embolism Pulmonary Medical History: Denies: Asthma, Bronchitis, Chronic Obstructive Pulmonary Disease (COPD), Pneumonia, Sleep Apnea, Tuberculosis EENT Medical History: Reports: Eyes - Glasses, Ears - Partial hearing loss Denies: Throat Neurological Medical History: Denies: Hemorrhagic CVA, Ischemic CVA, Seizures Endocrine Medical History: Reports: Diabetes Mellitus Type 1, Diabetes Mellitus Type 2 Denies: Hyperthyroidism, Hypothyroidism Renal/ Medical History: Reports: None GI Medical History: Denies: Cirrhosis, Gastroesophageal Reflux Disease, Hepatitis, Peptic Ulcer Disease Musculoskeltal Medical History: Reports: Arthritis Skin Medical History: Reports: None Psychiatric Medical History: Reports: Tobacco Dependency Denies: Alcohol Dependency, Depression, General Anxiety Disorder, Substance Abuse Hematology: Reports: Anemia - Chronic Infectious Medical History: Reports: Methicillin-Resistant Staph Aureus Denies: Hepatitis B, Hepatitis C Past Surgical History Past Surgical History: Reports: Orthopedic Surgery - Left forearm Denies: Pacemaker Social History Lives with: Family - Sister and [id number] Smoking Status: Current Every Day Smoker Cigarettes Packs Per Day: 1.5 Frequency of Alcohol Use: Social - 6 pack of beer per week Hx Recreational Drug Use: No Drugs: None Hx Prescription Drug Abuse: No - Advance Directive Resuscitation Status: Full Code Family History Family History: CVA, DM Parental Family History Reviewed: No Children Family History Reviewed: NA Sibling(s) Family History Reviewed.: NA Medication/Allergy Home Medications: Aspirin [Adult Low Dose Aspirin EC] 81 mg PO DAILY 05/26/17 Atorvastatin Calcium [Lipitor 40 mg Tablet] 40 mg PO DAILY 05/26/17 Carvedilol [Coreg 3.125 mg Tablet] 3.125 mg PO BID 05/26/17 Furosemide [Lasix] 40 mg PO DAILY 05/26/17 Gabapentin [Neurontin 300 mg Capsule] 600 mg PO Q12 05/26/17 Insulin Glargine,Hum.rec.anlog [Lantus Insulin 100 Unit/1 ml 10 ml] 12 units SQ QHS 05/26/17 Linagliptin [Tradjenta] 5 mg PO DAILY 05/26/17 Lisinopril [Zestril] 10 mg PO DAILY 05/26/17 Oxycodone HCl/Acetaminophen [Percocet 7.5-325 mg Tablet] 1 tab PO Q6HP PRN 05/26 Sildenafil Citrate [Sildenafil] 20 mg PO DAILY 05/26/17 Allergies/Adverse Reactions: No Known Allergies Allergy (Verified 08/13/16 09:02) Review of Systems All systems: reviewed and no additional remarkable complaints except as stated Physical Exam Vital Signs: Temp Pulse Resp BP Pulse Ox 97.3 F 97 19 143/85 H 100 05/26/17 15:23 05/26/17 15:23 05/26/17 15:23 05/26/17 15:23 05/26/17 15:23 Intake & Output 05/25/17 05/26/17 05/27/17 06:59 06:59 06:59 Intake Total 475 0 Output Total 0 700 Balance 475 -700 Weight 69.9 kg Exam: General: Patient is alert and looks well. HEENT: There is pallor but no jaundice. PERRLA. Oropharynx normal Respiratory: No chest deformity. No respiratory distress. Chest wall palpitation was unremarkable. Breath sounds were normal Cardiovascular: Heart sounds 1 and 2 normal with no murmurs. Abdominal: Not distended. Soft and nontender. Liver and spleen not palpable. No ascites demonstrated. Bowel sounds active. Rectal examination was deferred. Extremities: No edema Neurological: Alert and oriented x4. Grossly nonfocal. Normal speech Skin: No significant rash Psychological: Normal affect Results Laboratory Results: 05/26/17 12:59 05/26/17 05:39 05/26/17 05/26/17 05/26/17 05:39 06:05 09:20 WBC RBC Hgb Hct MCV MCH MCHC RDW Plt Count Seg Neutrophils % Lymphocytes % Monocytes % Eosinophils % Basophils % Absolute Neutrophils Absolute Lymphocytes Absolute Monocytes Absolute Eosinophils Absolute Basophils Carbonic Acid 1.41 H HCO3/H2CO3 Ratio 15:1 ABG pH 7.29 L ABG pCO2 46.7 H ABG pO2 75.4 L ABG HCO3 22.1 ABG O2 Saturation 93.6 L ABG Base Excess -4.3 FiO2 6 LITERS Sodium 140.1 Potassium 5.3 H Chloride 108 H Carbon Dioxide 20 L Anion Gap 12 BUN 38 H Creatinine 1.34 H Est GFR ( Amer) > 60 Est GFR (Non-Af Amer) 55 L Glucose 261 H Calcium 9.4 Urine Color STRAW Urine Appearance CLEAR Urine pH 5.0 Ur Specific [place] 1.008 Urine Protein 30 H Urine Glucose (UA) NEGATIVE Urine Ketones NEGATIVE Urine Blood SMALL H Urine Nitrite NEGATIVE Ur Leukocyte Esterase TRACE H Urine WBC (Auto) 4 Urine RBC (Auto) 4 05/26/17 12:59 WBC 13.4 H RBC 3.63 L Hgb 10.0 L D Hct 30.4 L MCV 84 MCH 27.5 MCHC 32.7 RDW 17.0 H Plt Count 298 Seg Neutrophils % Not Reportable Lymphocytes % Not Reportable Monocytes % Not Reportable Eosinophils % Not Reportable Basophils % Not Reportable Absolute Neutrophils Not Reportable Absolute Lymphocytes Not Reportable Absolute Monocytes Not Reportable Absolute Eosinophils Not Reportable Absolute Basophils Not Reportable Carbonic Acid HCO3/H2CO3 Ratio ABG pH ABG pCO2 ABG pO2 ABG HCO3 ABG O2 Saturation ABG Base Excess FiO2 Sodium Potassium Chloride Carbon Dioxide Anion Gap BUN Creatinine Est GFR ( Amer) Est GFR (Non-Af Amer) Glucose Calcium Urine Color Urine Appearance Urine pH Ur Specific [place] Urine Protein Urine Glucose (UA) Urine Ketones Urine Blood Urine Nitrite Ur Leukocyte Esterase Urine WBC (Auto) Urine RBC (Auto) 05/26/17 05:39 Troponin I 0.071 Impressions: Chest X-Ray 05/26/17 00:00 IMPRESSION: CARDIAC ENLARGEMENT. MILD VASCULAR CONGESTION. Assessment & Plan - Diagnosis (1) Anemia Qualifiers: Anemia type: other cause Qualified Code(s): D64.9 - Anemia, unspecified Is this a current diagnosis for this admission?: YesPlan: He has chronic anemia which I suspect is from his chronic diseases. His hemoglobin dropped 3 g compared with January of this year. He will need to undergo an EGD and colonoscopy but I will perform these as outpatient. He has CHF earlier on today presumably from his blood transfusion and I expect this to resolve soon. (2) Heme + stool Is this a current diagnosis for this admission?: Yes (3) CHF (congestive heart failure) Qualifiers: Congestive heart failure type: systolic Congestive heart failure chronicity: acute on chronic Qualified Code(s): I50.23 - Acute on chronic systolic (congestive) heart failure (4) COPD (chronic obstructive pulmonary disease) Qualifiers: COPD type: unspecified COPD Qualified Code(s): J44.9 - Chronic obstructive pulmonary disease, unspecified Is this a current diagnosis for this admission?: Yes
[2017-05-27 06:53] LABS: ABSOLUTE BASOPHILS # (AUTO) 0.1 10^3/uL (0.0-0.2); ABSOLUTE EOSINOPHILS # (AUTO) 0.1 10^3/uL (0.0-0.6); ABSOLUTE LYMPHOCYTES (AUTO) 1.6 10^3/uL (0.5-4.7); ABSOLUTE MONOCYTES (AUTO) 1.6 10^3/uL (0.1-1.4); ABSOLUTE NEUT (AUTO) 9.7 10^3/uL (1.7-8.2); BASOPHILS % (AUTO) 0.7 % (0-2); EOSINOPHILS % (AUTO) 0.5 % (0-6); HEMATOCRIT 26.9 % (37.9-51.0); HEMOGLOBIN 8.9 g/dL (13.5-17.0); HGB HCT DIFFERENCE -0.2; LYMPHOCYTES % (AUTO) 12.2 % (13-45); MEAN CORPUSCULAR HEMOGLOBIN 27.4 pg (27.0-33.4); MEAN CORPUSCULAR HGB CONC 32.9 g/dL (32.0-36.0); MEAN CORPUSCULAR VOLUME 83 fl (80-97); MONOCYTES % (AUTO) 12.5 % (3-13); RED BLOOD COUNT 3.23 10^6/uL (4.35-5.55); RED CELL DISTRIBUTION WIDTH 16.6 % (11.5-14.0); SEGMENTED NEUTROPHILS % (AUTO) 74.1 % (42-78)
[2017-05-27 07:11] LABS: ANION GAP 13 (5-19); BLOOD UREA NITROGEN 40 mg/dL (7-20); CALCIUM 9.3 mg/dL (8.4-10.2); CARBON DIOXIDE 21 mmol/L (22-30); CHLORIDE 109 mmol/L (98-107); CREATININE RESULT 1.26 mg/dL (0.52-1.25); GLUCOSE 150 mg/dL (75-110); POTASSIUM 4.4 mmol/L (3.6-5.0); SODIUM 142.5 mmol/L (137-145)
[2017-05-27] MEDS: INSULIN LISPRO 100 UNIT/ML 3 ML VIAL SUBCUT PRN ×3 (07:50→17:50)
[2017-05-27] MEDS: FUROSEMIDE INJ/PF 40 MG/4 ML SDV IV SCH ×2 (10:44→21:33)
[2017-05-27] MEDS: DOCUSATE SODIUM 100 MG CAPSULE PO SCH (10:46)
--- NOTE | 2017-05-27 12:09 | PDOC PROGRESS REPORT ---
Subjective Progress Note for:: 05/27/17 Subjective:: Reports that his shortness of breath has improved with the Lasix overnight. Physical Exam Vital Signs: Temp Pulse Resp BP Pulse Ox 98.2 F 95 20 109/62 95 05/27/17 08:17 05/27/17 08:17 05/27/17 08:17 05/27/17 08:17 05/27/17 08:17 Intake & Output 05/26/17 05/27/17 05/28/17 06:59 06:59 06:59 Intake Total 475 318 Output Total 0 850 Balance 475 -532 Weight 69.9 kg 71.5 kg General appearance: PRESENT: no acute distress Eye exam: PRESENT: conjunctiva pink. ABSENT: scleral icterus Mouth exam: PRESENT: moist, tongue midline Neck exam: ABSENT: JVD Respiratory exam: PRESENT: rales - Bibasilar Rales. ABSENT: rhonchi, wheezes Cardiovascular exam: PRESENT: RRR. ABSENT: diastolic murmur, rubs, systolic murmur GI/Abdominal exam: PRESENT: normal bowel sounds, soft. ABSENT: distended, guarding, mass, organolmegaly, rebound, tenderness Extremities exam: PRESENT: pedal edema - Trace pedal edema. ABSENT: calf tenderness, clubbing Neurological exam: PRESENT: alert, awake, oriented to person, oriented to place , oriented to time, oriented to situation, CN II-XII grossly intact. ABSENT: motor sensory deficit Psychiatric exam: PRESENT: appropriate affect Skin exam: PRESENT: dry, intact, warm. ABSENT: cyanosis, rash Results Laboratory Results: 05/27/17 06:05 05/27/17 06:05 05/26/17 05/27/17 05/27/17 12:59 06:05 06:05 WBC 13.4 H 13.0 H RBC 3.63 L 3.23 L Hgb 10.0 L D 8.9 L Hct 30.4 L 26.9 L MCV 84 83 MCH 27.5 27.4 MCHC 32.7 32.9 RDW 17.0 H 16.6 H Plt Count 298 263 Seg Neutrophils % Not Reportable 74.1 Lymphocytes % Not Reportable 12.2 L Monocytes % Not Reportable 12.5 Eosinophils % Not Reportable 0.5 Basophils % Not Reportable 0.7 Absolute Neutrophils Not Reportable 9.7 H Absolute Lymphocytes Not Reportable 1.6 Absolute Monocytes Not Reportable 1.6 H Absolute Eosinophils Not Reportable 0.1 Absolute Basophils Not Reportable 0.1 Sodium 142.5 Potassium 4.4 Chloride 109 H Carbon Dioxide 21 L Anion Gap 13 BUN 40 H Creatinine 1.26 H Est GFR ( Amer) > 60 Est GFR (Non-Af Amer) 59 L Glucose 150 H Calcium 9.3 05/26/17 06:40 Nasophary (Mrsa Only) MRSA Surveillance Culture - Final NO MRSA RECOVERED 05/26/17 05:39 Troponin I 0.071 Impressions: Chest X-Ray 05/26/17 00:00 IMPRESSION: CARDIAC ENLARGEMENT. MILD VASCULAR CONGESTION. Assessment & Plan - Diagnosis (1) Acute on chronic combined systolic (congestive) and diastolic (congestive) heart failure Is this a current diagnosis for this admission?: YesPlan: Patient presented with significant anemia. Improved with transfusion. He also has gotten IV Lasix with improvement in his congestive heart failure. If he remains stable overnight he can hopefully be discharged home tomorrow. (2) Elevated troponin Is this a current diagnosis for this admission?: YesPlan: Likely secondary to the underlying congestive heart failure. The patient's troponins are elevated but have been flat. (3) COPD (chronic obstructive pulmonary disease) Qualifiers: COPD type: unspecified COPD Qualified Code(s): J44.9 - Chronic obstructive pulmonary disease, unspecified Is this a current diagnosis for this admission?: YesPlan: We will continue with nebulizers as needed. 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 (6) Hyperlipidemia Qualifiers: Hyperlipidemia type: unspecified Qualified Code(s): E78.5 - Hyperlipidemia, unspecified Is this a current diagnosis for this admission?: Yes (7) Hypertension Qualifiers: Hypertension type: essential hypertension Qualified Code(s): I10 - Essential (primary) hypertension Is this a current diagnosis for this admission?: YesPlan: Blood pressures are stable. (8) Coronary artery disease Qualifiers: Coronary Disease-Associated Artery/Lesion type: [place] artery [place] vs. transplanted heart: [place] heart Associated angina: angina presence unspecified Qualified Code(s): I25.10 - Atherosclerotic heart disease of [place] coronary artery without angina pectoris Is this a current diagnosis for this admission?: YesPlan: Denies any chest pain. Patient has elevated troponins but does not have any evidence for an acute coronary syndrome (9) Anemia Qualifiers: Anemia type: other cause Qualified Code(s): D64.9 - Anemia, unspecified Is this a current diagnosis for this admission?: YesPlan: Patient will be evaluated by GI for the heme positive stools and anemia. Patient currently is not stable enough for a colonoscopy unless it is emergent. - Time Time Spent with patient: 25-34 minutes - Inpatient Certification Medical Necessity: Need Close Monitoring Due to Risk of Patient Decompensation
[2017-05-28 06:40] LABS: ABSOLUTE BASOPHILS # (AUTO) 0.1 10^3/uL (0.0-0.2); ABSOLUTE MONOCYTES (AUTO) 1.2 10^3/uL (0.1-1.4); BASOPHILS % (AUTO) 0.8 % (0-2); EOSINOPHILS % (AUTO) 0.4 % (0-6); HEMATOCRIT 27.7 % (37.9-51.0); HEMOGLOBIN 9.1 g/dL (13.5-17.0); HGB HCT DIFFERENCE -0.4; LYMPHOCYTES % (AUTO) 8.9 % (13-45); MEAN CORPUSCULAR HEMOGLOBIN 27.5 pg (27.0-33.4); MEAN CORPUSCULAR HGB CONC 32.8 g/dL (32.0-36.0); MEAN CORPUSCULAR VOLUME 84 fl (80-97); MONOCYTES % (AUTO) 10.8 % (3-13); RED CELL DISTRIBUTION WIDTH 16.4 % (11.5-14.0); SEGMENTED NEUTROPHILS % (AUTO) 79.1 % (42-78); WHITE BLOOD COUNT 11.4 10^3/uL (4.0-10.5)
[2017-05-28 07:48] LABS: ANION GAP 15 (5-19); BLOOD UREA NITROGEN 40 mg/dL (7-20); CALCIUM 9.1 mg/dL (8.4-10.2); CARBON DIOXIDE 19 mmol/L (22-30); CHLORIDE 104 mmol/L (98-107); CREATININE RESULT 1.25 mg/dL (0.52-1.25); GLUCOSE 171 mg/dL (75-110); POTASSIUM 4.2 mmol/L (3.6-5.0); SODIUM 137.6 mmol/L (137-145)
[2017-05-28] MEDS: INSULIN LISPRO 100 UNIT/ML 3 ML VIAL SUBCUT PRN (08:33)
[2017-05-28] MEDS: FUROSEMIDE INJ/PF 40 MG/4 ML SDV IV SCH (09:09)
[2017-05-28] MEDS: DOCUSATE SODIUM 100 MG CAPSULE PO SCH (09:10)
--- NOTE | 2017-05-28 10:24 | Physician Advisory Note ---
Physician Advisor ProgressNote .: Pursuant to the plan for [facility], I have reviewed the medical record for this patient. Physician Advisor Statement: Please consider documentin. "Acute hypoxemic respiratory failure with labored breathing & hypoxemia despite Bipap on 05/26 AM" - "Labored" breathing on Bipap 05/26 @09:01. Sat 90% on 6L O2 then 84% on Bipap w/40% FiO2 & RR up to 40 on 05/26 AM. 2. ?"chronic opioid dependence"? Thanks! CK
[2017-05-28 11:31] VITALS: BP 114/77
--- NOTE | 2017-05-28 15:09 | PDOC DISCHARGE SUMMARY ---
General - Admit/Disc Date/PCP Admission Date/Primary Care Provider: 05/26/17 03:39 CHARITY MESFIN, Discharge Date: 05/28/17 - Discharge Diagnosis (1) Acute on chronic combined systolic (congestive) and diastolic (congestive) heart failure Is this a current diagnosis for this admission?: Yes (2) Elevated troponin Is this a current diagnosis for this admission?: YesSummary: Chronically elevated troponins most likely secondary to the underlying congestive heart failure. (3) COPD (chronic obstructive pulmonary disease) Is this a current diagnosis for this admission?: Yes (4) Chronic pain disorder Is this a current diagnosis for this admission?: Yes (5) Diabetes mellitus Is this a current diagnosis for this admission?: Yes (6) Hyperlipidemia Is this a current diagnosis for this admission?: Yes (7) Hypertension Is this a current diagnosis for this admission?: Yes (8) Coronary artery disease Is this a current diagnosis for this admission?: Yes (9) Anemia Is this a current diagnosis for this admission?: YesSummary: Status post transfusion 2 units packed red blood cells - Additional Information Resuscitation Status: Full Code Discharge Diet: Cardiac, Diabetic Discharge Activity: Activity As Tolerated, Weigh Daily Home Medications: Aspirin [Adult Low Dose Aspirin EC] 81 mg PO DAILY 05/26/17 Atorvastatin Calcium [Lipitor 40 mg Tablet] 40 mg PO DAILY 05/26/17 Carvedilol [Coreg 3.125 mg Tablet] 3.125 mg PO BID 05/26/17 Furosemide [Lasix] 40 mg PO DAILY 05/26/17 Gabapentin [Neurontin 300 mg Capsule] 600 mg PO Q12 05/26/17 Insulin Glargine,Hum.rec.anlog [Lantus Insulin 100 Unit/1 ml 10 ml] 12 units SQ QHS 05/26/17 Linagliptin [Tradjenta] 5 mg PO DAILY 05/26/17 Lisinopril [Zestril] 10 mg PO DAILY 05/26/17 Oxycodone HCl/Acetaminophen [Percocet 7.5-325 mg Tablet] 1 tab PO Q6HP PRN 05/26 Sildenafil Citrate [Sildenafil] 20 mg PO DAILY 05/26/17 Nicotine [Nicoderm 21 mg/24 Hr Transderm Patch] 1 each TD DAILYP PRN patch.td24 05/28/17 History of Present Illness History of Present Illness: SUSAN MOREJON is a 57 year old male known history of systolic and diastolic congestive heart failure with ejection fraction of 35% who presented with 24- hour history of progressive shortness of breath, orthopnea and PND. The patient did not have any chest pain. When he presented he was noted to have significant anemia and has had some dark colored stool but no obvious melena or bright red blood per rectum. Patient was noted to be heme-positive on exam in the emergency room. Patient is admitted for transfusion and treatment of congestive heart failure. Hospital Course Hospital Course: 7-year-old gentleman with diabetes, coronary artery disease and systolic and diastolic congestive heart failure who presented with acute shortness of breath. Patient was found to have significant anemia with a hemoglobin of 6.9. The patient was in congestive heart failure and was transfused 2 units of packed red blood cells because of the symptomatic anemia. The patient did have heme positive stools. He has not had a colonoscopy. The patient while getting his second unit of packed red blood cells developed worsening short of breath and was given IV Lasix. His respiratory status improved. He was evaluated by GI and they recommended an outpatient colonoscopy as the patient is currently not stable enough for a colonoscopy. The patient's hemoglobin remained stable and no further action was taken. His respiratory status improved with the Lasix and he was back to his baseline respiratory status. The patient did have elevated troponins. These remained flat throughout the hospitalization and the congestive heart failure is the most likely cause for the positive troponins. It was felt the patient was able to be changed over to p.o. Lasix and discharged home. He will follow-up with his primary care doctor as an outpatient and have a colonoscopy scheduled. He will need a repeat hemoglobin at his follow-up appointment. Physical Exam Vital Signs: Temp Pulse Resp BP Pulse Ox 99.4 F 110 H 18 114/77 90 L 05/28/17 11:21 05/28/17 11:21 05/28/17 11:21 05/28/17 11:21 05/28/17 11:21 Intake & Output 05/27/17 05/28/17 05/29/17 06:59 06:59 06:59 Intake Total 318 799 Output Total 850 1550 Balance -848 -280 Weight 71.5 kg 71 kg General appearance: PRESENT: no acute distress Eye exam: PRESENT: conjunctiva pink. ABSENT: scleral icterus Mouth exam: PRESENT: moist, tongue midline Neck exam: ABSENT: carotid bruit, JVD, lymphadenopathy, thyromegaly Respiratory exam: PRESENT: clear to auscultation alicia. ABSENT: rales, rhonchi, wheezes Cardiovascular exam: PRESENT: RRR. ABSENT: diastolic murmur, rubs, systolic murmur GI/Abdominal exam: PRESENT: normal bowel sounds, soft. ABSENT: distended, guarding, mass, organolmegaly, rebound, tenderness Rectal exam: PRESENT: deferred Extremities exam: ABSENT: calf tenderness, clubbing, pedal edema Neurological exam: PRESENT: alert, awake, oriented to person, oriented to place , oriented to time, oriented to situation, CN II-XII grossly intact. ABSENT: motor sensory deficit Psychiatric exam: PRESENT: appropriate affect Skin exam: PRESENT: dry, intact, warm. ABSENT: cyanosis, rash Results Laboratory Results: 05/28/17 06:10 05/28/17 06:10 05/28/17 05/28/17 06:10 06:10 WBC 11.4 H RBC 3.30 L Hgb 9.1 L Hct 27.7 L MCV 84 MCH 27.5 MCHC 32.8 RDW 16.4 H Plt Count 250 Seg Neutrophils % 79.1 H Lymphocytes % 8.9 L Monocytes % 10.8 Eosinophils % 0.4 Basophils % 0.8 Absolute Neutrophils 9.0 H Absolute Lymphocytes 1.0 Absolute Monocytes 1.2 Absolute Eosinophils 0.0 Absolute Basophils 0.1 Sodium 137.6 Potassium 4.2 Chloride 104 Carbon Dioxide 19 L Anion Gap 15 BUN 40 H Creatinine 1.25 Est GFR ( Amer) > 60 Est GFR (Non-Af Amer) > 60 Glucose 171 H Calcium 9.1 05/26/17 05:39 Troponin I 0.071 Impressions: Chest X-Ray 05/26/17 00:00 IMPRESSION: CARDIAC ENLARGEMENT. MILD VASCULAR CONGESTION. Qualifiers PATEINT BEING DISCHARGED WITH ANY OF THE FOLLOWING DIAGNOSIS?: Heart Failure HF Pt being discharged on ACEI for LVEF less than 40%?: Yes HF Pt being discharged on ARBS for LVEF less than 40%?: No Reason(s) for not prescribing ARBS:: Not indicated HF Pt discharged on evidence-based Beta Jackie:: Yes Plan Discharge Plan: Discharged home in stable condition. Will follow up with primary care in 1-2 weeks. Will need a CBC drawn at his follow-up appointment. Time Spent: Greater than 30 Minutes
== END 2017-05-28 12:36 | disposition home or self-care (01) | DRG 292 ==
LOC: ER 20:38 → UNDOADMIN 05-26 01:17 → EH 05-26 01:17 → 5 05-26 02:44 → EH 05-26 02:44 → 5 05-26 03:39 → 3S 05-26 10:37
PROVIDERS: ADMIT Family Medicine; ATTEND Family Medicine
PROC: 30233N1 Transfusion of Nonautologous Red Blood Cells into Peripheral Vein, Percutaneous Approach (ICD-10-PCS; principal; 2017-05-26)
DX: I11.0 Hypertensive heart disease with heart failure (principal); K92.1 Melena; I50.43 Acute on chronic combined systolic (congestive) and diastolic (congestive) heart failure; I25.10 Atherosclerotic heart disease of native coronary artery without angina pectoris; I25.2 Old myocardial infarction; F17.210 Nicotine dependence, cigarettes, uncomplicated; E78.5 Hyperlipidemia, unspecified; D64.9 Anemia, unspecified; M19.90 Unspecified osteoarthritis, unspecified site; R74.8 Abnormal levels of other serum enzymes; E11.42 Type 2 diabetes mellitus with diabetic polyneuropathy; G89.29 Other chronic pain; Z83.3 Family history of diabetes mellitus; Z82.49 Family history of ischemic heart disease and other diseases of the circulatory system; Z79.4 Long term (current) use of insulin; Z79.899 Other long term (current) drug therapy; Z86.14 Personal history of Methicillin resistant Staphylococcus aureus infection; Z82.3 Family history of stroke
CPT/HCPCS: 36415; 36430; 36600; 71010; 80048; 80053; 80061; 80307; 81001; 82272; 82550; 82553; 82803; 82962; 83735; 83880; 84443; 84484; 85025; 86850; 86900; 86901; 86920; 93005; 93010; 94640; 94660; 99291; J1815; J1940; J3490; J7620; P9016

== ENCOUNTER 2017-09-02 12:26 | Emergency (ER) | payer MEDICAID ==
[2017-09-02] MEDS ORDERED: ONDANSETRON 4 MG TAB.RAPDIS PO ONE (13:48)
--- NOTE | 2017-09-02 13:52 | ER Document Report ---
ED Flu Like - General Chief Complaint: Flu Symptoms Stated Complaint: COUGH,CONGESTION,NAUSEA Time Seen by Provider: 09/02/17 13:24 Mode of Arrival: Ambulatory Information source: Patient Notes: 57-year-old male presents to ED for cough congestion nausea with no diarrhea or vomiting. He states he has been nausea with dry heaving for a couple days. He has a history of heart attacks with COPD and CHF and is on 2 L O2 at home. His pulse ox is 100% on the 2 L. He states he is concerned with his congestion with his medical history. TRAVEL OUTSIDE OF THE [place] IN LAST 30 DAYS: No - HPI Onset: Other - A couple days Timing/Duration: Persistent Severity: Moderate CO exposure: No Associated symptoms: Body/muscle aches, Nonproductive cough, Nausea, Rhinnorhea , Sinus pain/drainage. denies: Vomiting Similar symptoms previously: Yes Recently seen / treated by doctor: No - Related Data Allergies/Adverse Reactions: No Known Allergies Allergy (Verified 09/02/17 12:38) Past Medical History - General Information source: Patient - Social History Smoking Status: Current Every Day Smoker Cigarette use (# per day): Yes - 15-20 Chew tobacco use (# tins/day): No Smoking Education Provided: Yes - less than 1 min Frequency of alcohol use: Occasional Drug Abuse: None Lives with: Family Family History: CVA, DM Patient has suicidal ideation: No Patient has homicidal ideation: No - Past Medical History Cardiac Medical History: Reports: Hx Congestive Heart Failure, Hx Coronary Artery Disease, Hx Heart Attack - x 2, Hx Hypercholesterolemia - Possible, Hx Hypertension Pulmonary Medical History: Reports: Hx COPD EENT Medical History: Reports: None Neurological Medical History: Reports: None Endocrine Medical History: Reports: Hx Diabetes Mellitus Type 2 Renal/ Medical History: Reports: None Malignancy Medical History: Reports None GI Medical History: Reports: Hx Gastroesophageal Reflux Disease Musculoskeltal Medical History: Reports Hx Arthritis, Reports Hx Musculoskeletal Deformity, Reports Hx Musculoskeletal Trauma Skin Medical History: Reports Hx Cellulitis, Reports Hx MRSA Psychiatric Medical History: Reports: None Traumatic Medical History: Reports: Hx Fractures - Left arm and foot Infectious Medical History: Reports: Hx MRSA Past Surgical History: Reports: Hx Orthopedic Surgery - Left forearm - Immunizations Hx Diphtheria, Pertussis, Tetanus Vaccination: Yes Review of Systems - Review of Systems Constitutional: Recent illness EENT: Nose discharge, Sinus discharge Cardiovascular: No symptoms reported Respiratory: Cough, Other - Congestion Gastrointestinal: Nausea Genitourinary: No symptoms reported Male Genitourinary: No symptoms reported Musculoskeletal: No symptoms reported Skin: No symptoms reported Hematologic/Lymphatic: No symptoms reported Neurological/Psychological: No symptoms reported Physical Exam - Vital signs Vitals: Temp Pulse Resp BP Pulse Ox 97.7 F 80 20 114/68 100 09/02/17 12:38 09/02/17 12:38 09/02/17 12:38 09/02/17 12:38 09/02/17 12:38 Interpretation: Normal - General General appearance: Appears well, Alert - HEENT Head: Normocephalic, Atraumatic Eyes: Normal Pupils: PERRL - Respiratory Respiratory status: No respiratory distress Chest status: Nontender Breath sounds: Nonproductive cough, Rales, Rhonchi Chest palpation: Normal - Cardiovascular Rhythm: Regular Heart sounds: Normal auscultation Murmur: No - Abdominal Inspection: Normal Distension: No distension Bowel sounds: Normal Tenderness: Nontender Organomegaly: No organomegaly - Back Back: Normal, Nontender - Extremities General upper extremity: Normal inspection, Nontender, Normal color, Normal ROM , Normal temperature General lower extremity: Normal inspection, Nontender, Normal color, Normal ROM , Normal temperature, Normal weight bearing. No: Kika's sign - Neurological Neuro grossly intact: Yes Cognition: Normal Orientation: AAOx4 [place] Coma Scale Eye Opening: Spontaneous [place] Coma Scale Verbal: Oriented [place] Coma Scale Motor: Obeys Commands [place] Coma Scale Total: 15 Speech: Normal Motor strength normal: LUE, RUE, LLE, RLE Sensory: Normal - Psychological Associated symptoms: Normal affect, Normal mood - Skin Skin Temperature: Warm Skin Moisture: Dry Skin Color: Normal Course - Re-evaluation Re-evalutation: 09/02/17 18:47 Patient has a history of CHF COPD heart attack and on oxygen 2 L nasal cannula at home. Patient according to x-ray has a right middle lobe pneumonia. Patient was placed on cefdinir and azithromycin and discharged home with prescriptions for each to follow-up with his primary doctor. - Vital Signs Vital signs: Temp Pulse Resp BP Pulse Ox 97.8 F 93 20 139/77 H 100 09/02/17 15:48 09/02/17 15:48 09/02/17 15:48 09/02/17 15:48 09/02/17 15:48 - Diagnostic Test Radiology reviewed: Image reviewed, Reports reviewed Discharge - Discharge Clinical Impression: Right middle lobe pneumonia Qualifiers: Pneumonia type: due to unspecified organism Qualified Code(s): J18.1 - Lobar pneumonia, unspecified organism Condition: Stable Disposition: HOME, SELF-CARE Additional Instructions: PNEUMONIA: Your examination indicates that you have pneumonia. This is an infection of the lung tissue, usually caused by bacteria or a virus. Symptoms include cough, fever, shaking chills, chest pain, shortness of breath, and coughing up bloody sputum. Treatment for bacterial pneumonia includes rest, antibiotics for 10 to 14 days, increasing your clear liquid intake, a cool mist humidifier at your bedside, and fever medication. Often, a repeat chest X-ray is performed in a few weeks--even if you feel better--to ascertain whether the infection has completely resolved and no underlying lung problem is present. You should call the physician if you develop persistent vomiting, high fever that does not respond to fever medication, increasing shortness of breath , confusion, or lethargy. Also, failure to improve within two to three days is an indication for re-examination. Cephalosporins An antibiotic of the cephalosporin class has been prescribed. This type of antibiotic covers a wide variety of infections, including those of the skin, lungs, middle ear, and urinary tract. This antibiotic is somewhat similar to the penicillin family. In rare cases , a person who is allergic to penicillin will also be allergic to this medication. If you have had a severe allergic reaction to penicillin, and have not taken this antibiotic since that time, notify your doctor. Antibiotics which cover many germs ("broad spectrum" antibiotics) are more likely to cause diarrhea or "yeast" infections. Women prone to vaginal yeast problems may suffer an attack after taking this antibiotic. In infants, oral thrush (white spots "stuck" on the cheek) or yeast diaper rash may result. See your doctor if these problems occur. Call the doctor at once if you develop hives, itching, shortness of breath , or lightheadedness. Azithromycin Azithromycin (Zithromax) is a broad spectrum antibiotic in the same class as erythromycin. It can treat a variety of bacterial infections, but is most frequently used for respiratory infections. Azithromycin is extremely long-lasting. It accumulates in body tissues and continues to kill bacteria for many days. In order to improve absorption, Azithromycin should be taken at least one hour before or two hours after a meal. It does not have the same strong tendency to upset the stomach as erythromycin and is usually very well tolerated. Patients who have had a rash or other true allergic reactions to erythromycin should not take this medication. Call if you develop gastrointestinal distress, severe diarrhea, rash, hives, itching, or shortness of breath. USE OF ACETAMINOPHEN (Tylenol): Acetaminophen may be taken for pain relief or fever control. It's much safer than aspirin, offering a wider range of "safe" dosages. It is safe during . Some brand names are Tylenol, Panadol, Datril, Anacin 3, Tempra, and Liquiprin. Acetaminophen can be repeated every four hours. The following are maximum recommended dosages: WEIGHT Dose Drops Elixir Chewable( 80mg) (LBS.) drprs=droppers tsp=teaspoon 6 40 mg 0.4 ml (1/2) 6-11 80 mg 0.8 ml (full) tsp 1 tab 12-16 120 mg 1 1/2 drprs 3/4 tsp 1 1/2 tabs 17-23 160 mg 2 drprs 1 tsp 2 tabs 24-30 240 mg 3 drprs 1 1/2 tsp 3 tabs 30-35 320 mg 2 tsp 4 tabs 36-41 360 mg 2 1/4 tsp 4 1/2 tabs 42-47 400 mg 2 1/2 tsp 5 tabs 48-53 480 mg 3 tsp 6 tabs 54-59 520 mg 3 1/4 tsp 6 1/2 tabs 60-64 560 mg 3 1/2 tsp 7 tabs 65-70 600 mg 3 3/4 tsp 7 1/2 tabs 71-76 640 mg 4 tsp 8 tabs 77-82 720 mg 4 1/2 tsp 9 tabs 83-88 800 mg 5 tsp 10 tabs >89 pounds or adults 650 mg to 900 mg Acetaminophen can be repeated every four hours. Maximum dose not to exceed 4000 mg a day. These maximum recommended dosages are slightly higher than the dosages written on the product container, but these dosages are very safe and below the toxic dosage for acetaminophen. FOLLOW-UP CARE: If you have been referred to a physician for follow-up care, call the physician s office for an appointment as you were instructed or within the next two days. If you experience worsening or a significant change in your symptoms, notify the physician immediately or return to the Emergency Department at any time for re-evaluation. Prescriptions: Azithromycin [Zithromax 250 mg Tablet] 250 mg PO ASDIR PRN #6 tablet PRN Reason: Cefdinir [Omnicef 300 mg Capsule] 1 cap PO BID #20 capsule Referrals: CHARITY TOURE DO [Primary Care Provider] - Follow up tomorrow
--- NOTE | 2017-09-02 15:01 | RADIOLOGY REPORT (SQ) ---
EXAM DESCRIPTION: CHEST PA/LAT COMPLETED DATE/TIME: 09/02/2017 2:42 pm REASON FOR STUDY: cough congestion COMPARISON: 01/23/2017 EXAM PARAMETERS: NUMBER OF VIEWS: two views TECHNIQUE: Digital Frontal and Lateral radiographic views of the chest acquired. RADIATION DOSE: NA LIMITATIONS: none FINDINGS: LUNGS AND PLEURA: There is pulmonary vascular congestion. Mild pulmonary edema cannot be excluded. There is marked opacification in the right middle lobe. A right pleural effusion is prese nt. MEDIASTINUM AND HILAR STRUCTURES: No masses or contour abnormalities. HEART AND VASCULAR STRUCTURES: Heart size is borderline. Possible mild pulmonary edema. BONES: No acute findings. HARDWARE: None in the chest. OTHER: No other significant finding. IMPRESSION: 1. Cardiomegaly with suggestion of mild pulmonary edema. 2. Right pleural effusion. 3. There is marked opacification in the right middle lobe suggestive of consolidation. TECHNICAL DOCUMENTATION: JOB ID: [id number]- All Rights Reserved
[2017-09-02 15:49] VITALS: BP 139/77
== END 2017-09-02 15:50 | disposition home or self-care (01) ==
LOC: ER 12:26
DX: J18.1 Lobar pneumonia, unspecified organism (principal); R05 Cough; R09.81 Nasal congestion; R11.0 Nausea; I25.2 Old myocardial infarction; J44.9 Chronic obstructive pulmonary disease, unspecified; I50.9 Heart failure, unspecified; M79.1 Myalgia; F17.210 Nicotine dependence, cigarettes, uncomplicated
CPT/HCPCS: 99283; 87804; 71020; S0119

== ENCOUNTER 2017-09-17 08:09 | Inpatient (IN) | payer MEDICAID ==
[2017-09-17] MEDS ORDERED: IPRATROPIUM/ALBUTEROL 0.5-2.5 MG/3 ML AMPUL NEB ONE (08:41)
[2017-09-17] MEDS ORDERED: NORMAL SALINE 500 ML IV ONE (08:41)
--- NOTE | 2017-09-17 09:02 | ER Document Report ---
ED General - General Chief Complaint: Shortness Of Breath Stated Complaint: DIFFICULTY BREATHING Time Seen by Provider: 09/17/17 08:40 TRAVEL OUTSIDE OF THE [place] IN LAST 30 DAYS: No - HPI Patient complains to provider of: Short of breath Notes: Patient coming in for evaluation shortness of breath and difficulty sleeping. Patient was recently seen on chest x-ray shows signs of pneumonia was placed on azithromycin and cephalosporin told to follow-up PCP states patient did however have trouble sleeping now states increased shortness of breath at nighttime. Patient smells of smoke patient states not sure he is getting better from pneumonia. Patient also history of CHF. Patient denies any history of sleep apnea patient does wear chronic O2 24 7 states he still has 2 L. Upon my evaluation patient looks to be no obvious distress. Denies fevers chills nausea vomiting diarrhea - Related Data Allergies/Adverse Reactions: No Known Allergies Allergy (Verified 09/17/17 08:15) Past Medical History - Social History Smoking Status: Unknown if Ever Smoked Family History: CVA, DM Patient has suicidal ideation: No Patient has homicidal ideation: No - Past Medical History Cardiac Medical History: Reports: Hx Congestive Heart Failure, Hx Coronary Artery Disease, Hx Heart Attack - x 2, Hx Hypercholesterolemia - Possible, Hx Hypertension Denies: Hx Atrial Fibrillation Pulmonary Medical History: Reports: Hx COPD Denies: Hx Asthma, Hx Bronchitis, Hx Pneumonia, Hx Tuberculosis Neurological Medical History: Denies: Hx Seizures Endocrine Medical History: Reports: Hx Diabetes Mellitus Type 1, Hx Diabetes Mellitus Type 2 Renal/ Medical History: Denies: Hx Peritoneal Dialysis GI Medical History: Reports: Hx Gastroesophageal Reflux Disease Musculoskeltal Medical History: Reports Hx Arthritis, Reports Hx Musculoskeletal Deformity, Reports Hx Musculoskeletal Trauma Skin Medical History: Reports Hx Cellulitis, Reports Hx MRSA Psychiatric Medical History: Denies: Hx Depression Traumatic Medical History: Reports: Hx Fractures - Left arm and foot Infectious Medical History: Reports: Hx MRSA Past Surgical History: Reports: Hx Orthopedic Surgery - Left forearm - Immunizations Hx Diphtheria, Pertussis, Tetanus Vaccination: Yes Review of Systems - Review of Systems Constitutional: No symptoms reported EENT: No symptoms reported Cardiovascular: No symptoms reported Respiratory: Short of breath Gastrointestinal: No symptoms reported Genitourinary: No symptoms reported Male Genitourinary: No symptoms reported Musculoskeletal: No symptoms reported Skin: No symptoms reported Hematologic/Lymphatic: No symptoms reported Neurological/Psychological: No symptoms reported -: Yes All other systems reviewed and negative Physical Exam - Vital signs Vitals: Temp Pulse Resp BP Pulse Ox 97.7 F 81 20 119/67 99 09/17/17 08:15 09/17/17 08:15 09/17/17 08:15 09/17/17 08:15 09/17/17 08:15 Interpretation: Normal - General General appearance: Appears well, Alert - HEENT Head: Normocephalic, Atraumatic Eyes: Normal Pupils: PERRL - Respiratory Respiratory status: No respiratory distress Chest status: Nontender Breath sounds: Wheezing Chest palpation: Normal - Cardiovascular Rhythm: Regular Heart sounds: Normal auscultation Murmur: No - Abdominal Inspection: Normal Distension: No distension Bowel sounds: Normal Tenderness: Nontender Organomegaly: No organomegaly - Back Back: Normal, Nontender - Extremities General upper extremity: Normal inspection, Nontender, Normal color, Normal ROM , Normal temperature General lower extremity: Normal inspection, Nontender, Normal color, Normal ROM , Normal temperature, Normal weight bearing. No: Kika's sign - Neurological Neuro grossly intact: Yes Cognition: Normal Orientation: AAOx4 Ganga Coma Scale Eye Opening: Spontaneous Ganga Coma Scale Verbal: Oriented [place]anga Coma Scale Motor: Obeys Commands [place] Coma Scale Total: 15 Speech: Normal Motor strength normal: LUE, RUE, LLE, RLE Sensory: Normal - Psychological Associated symptoms: Normal affect, Normal mood - Skin Skin Temperature: Warm Skin Moisture: Dry Skin Color: Normal Course - Re-evaluation Re-evalutation: 09/17/17 09:04 Recheck an x-ray check next laboratory studies. Also had a BNP on patient has as history of CHF 09/17/17 10:39 Patient with slight elevation kidney function and potassium EKG does not show any acute changes. Patient chest x-ray showed worsening pneumonia now bilateral pleural effusions. Upon reevaluation patient is a history of CHF and noncompliance with his Lasix regimen. Will likely respiratory complaints are due to both etiologies will admit to the hospitalist service for further evaluation and monitoring. - Vital Signs Vital signs: Temp Pulse Resp BP Pulse Ox 97.7 F 81 20 119/67 99 09/17/17 08:15 09/17/17 08:15 09/17/17 08:15 09/17/17 08:15 09/17/17 09:00 - Laboratory Result Diagrams: 09/17/17 08:55 09/17/17 08:55 Laboratory results interpreted by me: 09/17/17 09/17/17 09/17/17 08:55 08:55 08:55 RBC 3.69 L Hgb 8.8 L Hct 27.6 L MCV 75 L MCH 23.9 L RDW 18.1 H Basophils % 2.5 H Potassium 5.7 H BUN 28 H Creatinine 1.40 H Est GFR (Non-Af Amer) 52 L Glucose 130 H Direct Bilirubin 0.5 H NT-Pro-B Natriuret Pep 21902 H Discharge - Discharge Clinical Impression: CHF (congestive heart failure), COPD (chronic obstructive pulmonary disease), Anemia, Pneumonia failed outpatient treatment, Tobacco dependency Condition: Good Disposition: ADMITTED INPATIENT Admitting Provider: Rudolphist Karena Mcgraw Unit Admitted: Telemetry
[2017-09-17 09:12] LABS: VENOUS BLOOD BASE EXCESS -0.8 mmol/L; VENOUS BLOOD HCO3 25.4 mmol/L (20-32); VENOUS BLOOD PCO2 49.8 mmHg (35-63); VENOUS BLOOD PH 7.33 (7.30-7.42)
[2017-09-17 09:13] LABS: ABSOLUTE BASOPHILS # (AUTO) 0.1 10^3/uL (0.0-0.2); ABSOLUTE EOSINOPHILS # (AUTO) 0.2 10^3/uL (0.0-0.6); ABSOLUTE MONOCYTES (AUTO) 0.5 10^3/uL (0.1-1.4); ABSOLUTE NEUT (AUTO) 3.8 10^3/uL (1.7-8.2); BASOPHILS % (AUTO) 2.5 % (0-2); EOSINOPHILS % (AUTO) 3.9 % (0-6); HEMATOCRIT 27.6 % (37.9-51.0); HEMOGLOBIN 8.8 g/dL (13.5-17.0); HGB HCT DIFFERENCE -1.2; MEAN CORPUSCULAR HEMOGLOBIN 23.9 pg (27.0-33.4); MEAN CORPUSCULAR HGB CONC 32.1 g/dL (32.0-36.0); MEAN CORPUSCULAR VOLUME 75 fl (80-97); RED BLOOD COUNT 3.69 10^6/uL (4.35-5.55); RED CELL DISTRIBUTION WIDTH 18.1 % (11.5-14.0); SEGMENTED NEUTROPHILS % (AUTO) 67.6 % (42-78); WHITE BLOOD COUNT 5.7 10^3/uL (4.0-10.5)
[2017-09-17 09:45] LABS: ALANINE AMINOTRANSFERASE 24 U/L (21-72); ALBUMIN 4.1 g/dL (3.5-5.0); ALKALINE PHOSPHATASE 121 U/L (38-126); ANION GAP 15 (5-19); ASPARTATE AMINO TRANSFERASE 18 U/L (17-59); BILIRUBIN,DIRECT 0.5 mg/dL (0.0-0.4); BILIRUBIN,TOTAL 0.8 mg/dL (0.2-1.3); BLOOD UREA NITROGEN 28 mg/dL (7-20); CALCIUM 9.9 mg/dL (8.4-10.2); CARBON DIOXIDE 23 mmol/L (22-30); CHLORIDE 105 mmol/L (98-107); GLUCOSE 130 mg/dL (75-110); POTASSIUM 5.7 mmol/L (3.6-5.0); SODIUM 143.1 mmol/L (137-145); TOTAL PROTEIN 7.4 g/dL (6.3-8.2)
[2017-09-17 09:58] LABS: TROPONIN I < 0.012 ng/mL
--- NOTE | 2017-09-17 10:07 | RADIOLOGY REPORT (SQ) ---
EXAM DESCRIPTION: CHEST PA/LAT COMPLETED DATE/TIME: 09/17/2017 9:37 am REASON FOR STUDY: recent pna continued sob COMPARISON: Chest films 01/23/2017, 05/25/2017, 05/26/2017, 09/02/2017 EXAM PARAMETERS: NUMBER OF VIEWS: two views TECHNIQUE: Digital Frontal and Lateral radiographic views of the chest acquired. RADIATION DOSE: NA LIMITATIONS: none FINDINGS: LUNGS AND PLEURA: Increase in the right pleural effusion compared to 09/02/2017, now moder ate in size. There is right middle lobe and right lower lobe partial collapse and consolidation, atelectasis versu s pneumonia. There is now a trace left pleural effusion, and mild left basilar airspace disease atelectasis versus pneumonia. No pneumothorax. No pleural effusions. MEDIASTINUM AND HILAR STRUCTURES: No masses or contour abnormalities. HEART AND VASCULAR STRUCTURES: Moderate cardiomegaly BONES: No acute findings. HARDWARE: None in the chest. OTHER: No other significant finding. IMPRESSION: Increase in right pleural effusion and right middle/lower lobe consolidation New trace left pleural effusion and left basilar airspace disease TECHNICAL DOCUMENTATION: JOB ID: [id number] All Rights Reserved
[2017-09-17] MEDS ORDERED: LEVOFLOXACIN 500 MG/D5W RTU 500 MG/100 ML RTUPB IV ONE (10:38)
[2017-09-17] MEDS ORDERED: FUROSEMIDE INJ/PF 40 MG/4 ML SDV IV ONE ×2 (10:39→18:00)
[2017-09-17] MEDS ORDERED: ACETAMINOPHEN 325 MG TABLET PO PRN (11:46)
--- NOTE | 2017-09-17 12:54 | EKG REPORT ---
SEVERITY:- ABNORMAL ECG - SINUS RHYTHM FIRST DEGREE AV BLOCK LOW VOLTAGE WITH RIGHT AXIS DEVIATION CONSIDER ANTEROSEPTAL INFARCT NONSPECIFIC T ABNORMALITIES, LATERAL LEADS : Confirmed by: Elijah Hess MD 17-Sep-2017 12:54:17
[2017-09-17] MEDS: IPRATROPIUM BROMIDE 0.02% NEB 0.5 MG/2.5 ML AMPUL NEB SCH ×2 (13:36→20:10)
[2017-09-17] MEDS: ALBUTEROL SULFATE 0.083% NEB 2.5 MG/3 ML AMPUL NEB SCH ×2 (13:36→20:11)
--- NOTE | 2017-09-17 17:27 | PDOC H&P ---
History of Present Illness Admission Date/PCP: 09/17/17 11:07 CHARITY TOURE DO Patient complains of: Worsening shortness of breath and increasing edema History of Present Illness: Patient is a 57-year-old man with a history of nicotine dependence, chronic respiratory failure on home with home oxygen, congestive heart failure, diabetes presented to the hospital with complaint of worsening shortness of breath associated with productive cough of whitish and yellowish sputum. He was seen in the ER about a week and a half ago and was given Ceftin and azithromycin for pneumonia. He reports since last week he has been sitting up to sleep with worsening shortness of breath. He mostly wheelchair bound due to back injury. Denies fevers but reports chills. He continues to smoke and on home 2 L. He takes Lasix 40 mg daily and he does report that he does not remember to take it every day. He does use sea salt with his meals. He denies having any chest pain nor dizziness. Chest x-ray on presentation with increased right pleural effusion and right middle lower lobe consolidation. New trace left pleural effusion and left basilar airspace disease. His BNP elevated to 17,000 and negative troponin. Evidence of leukocytosis. Hospitalist consulted for admission for pneumonia and heart failure. He was started with IV antibiotics and IV Lasix added. He is being admitted to the floor for further management. Past Medical History Cardiac Medical History: Reports: Congestive Heart Failure, Coronary Artery Disease, Myocardial Infarction - x 2, Hyperlipidema - Possible, Hypertension Denies: Atrial Fibrillation Pulmonary Medical History: Reports: Chronic Obstructive Pulmonary Disease (COPD) , Respiratory Failure - Oxygen dependent Denies: Asthma, Bronchitis, Pneumonia, Tuberculosis Neurological Medical History: Denies: Seizures Endocrine Medical History: Reports: Diabetes Mellitus Type 1, Diabetes Mellitus Type 2 GI Medical History: Reports: Gastroesophageal Reflux Disease Musculoskeltal Medical History: Reports: Arthritis Psychiatric Medical History: Denies: Depression Hematology: Reports: Anemia - Chronic Infectious Medical History: Reports: Methicillin-Resistant Staph Aureus Past Surgical History Past Surgical History: Reports: Orthopedic Surgery - Left forearm Social History Smoking Status: Current Every Day Smoker Frequency of Alcohol Use: Social - 6 pack of beer per week Hx Recreational Drug Use: No Drugs: None Hx Prescription Drug Abuse: No Family History Family History: CVA, DM Parental Family History Reviewed: Yes Children Family History Reviewed: Unknown Sibling(s) Family History Reviewed.: Yes Medication/Allergy Home Medications: Aspirin [Aspirin EC] 81 mg PO DAILY PRN 09/17/17 Atorvastatin Calcium [Lipitor 40 mg Tablet] 40 mg PO QHS 09/17/17 Carvedilol [Coreg 3.125 mg Tablet] 3.125 mg PO Q12 09/17/17 Furosemide [Lasix 40 mg Tablet] 40 mg PO DAILY 09/17/17 Linagliptin [Tradjenta] 5 mg PO DAILY 09/17/17 Lisinopril [Prinivil 10 mg Tablet] 10 mg PO DAILY 09/17/17 Allergies/Adverse Reactions: No Known Allergies Allergy (Verified 09/17/17 08:15) Review of Systems Constitutional: PRESENT: as per HPI, chills Cardiovascular: PRESENT: edema, orthropnea. ABSENT: chest pain Gastrointestinal: ABSENT: abdominal pain, constipation, diarrhea, hematemesis, hematochezia, nausea, vomiting Genitourinary: ABSENT: dysuria, hematuria Musculoskeletal: PRESENT: back pain - Chronic Neurological: ABSENT: abnormal gait, abnormal speech, confusion, dizziness, focal weakness, syncope Psychiatric: ABSENT: anxiety, depression, homidical ideation, suicidal ideation Endocrine: ABSENT: cold intolerance, heat intolerance, polydipsia, polyuria Physical Exam Vital Signs: Temp Pulse Resp BP Pulse Ox 97.7 F 81 24 H 116/75 98 09/17/17 08:15 09/17/17 08:15 09/17/17 11:01 09/17/17 11:01 09/17/17 11:01 General appearance: PRESENT: no acute distress, other - Looks older than stated age Head exam: PRESENT: atraumatic, normocephalic Eye exam: PRESENT: EOMI, PERRLA. ABSENT: scleral icterus Mouth exam: PRESENT: moist, tongue midline Neck exam: ABSENT: JVD Respiratory exam: PRESENT: decreased breath sounds, symmetrical. ABSENT: rales , rhonchi, wheezes Cardiovascular exam: PRESENT: RRR. ABSENT: diastolic murmur, rubs, systolic murmur GI/Abdominal exam: PRESENT: normal bowel sounds, soft. ABSENT: distended, guarding, mass, organolmegaly, rebound, tenderness Rectal exam: PRESENT: deferred Extremities exam: PRESENT: full ROM. ABSENT: calf tenderness, clubbing, pedal edema - +3 pitting edema below the knee Neurological exam: PRESENT: alert, awake, oriented to person, oriented to place , oriented to time, oriented to situation. ABSENT: motor sensory deficit Psychiatric exam: PRESENT: appropriate affect, normal mood. ABSENT: homicidal ideation, suicidal ideation Skin exam: PRESENT: dry, intact, warm. ABSENT: cyanosis, rash Results Laboratory Results: 09/17/17 09/17/17 09/17/17 08:55 08:55 08:55 WBC 5.7 Hgb 8.8 L Hct 27.6 L MCV 75 L Plt Count 315 Sodium 143.1 Potassium 5.7 H Chloride 105 Carbon Dioxide 23 BUN 28 H Creatinine 1.40 H Glucose 130 H Lactic Acid Calcium 9.9 Total Bilirubin 0.8 Troponin I NT-Pro-B Natriuret Pep 76241 H 09/17/17 09/17/17 08:55 15:15 WBC Hgb Hct MCV Plt Count Sodium Potassium Chloride Carbon Dioxide BUN Creatinine Glucose Lactic Acid 0.8 Calcium Total Bilirubin Troponin I < 0.012 NT-Pro-B Natriuret Pep Impressions: Chest X-Ray 09/17/17 08:41 IMPRESSION: Increase in right pleural effusion and right middle/lower lobe consolidation New trace left pleural effusion and left basilar airspace disease Assessment & Plan - Diagnosis (1) Acute on chronic combined systolic (congestive) and diastolic (congestive) heart failure Is this a current diagnosis for this admission?: Yes Plan: Chest x-ray on presentation with increased right pleural effusion and right middle lower lobe consolidation. New trace left pleural effusion and left basilar airspace disease. His BNP elevated to 17,000 and negative troponin Continue to trend troponin Started on IV Lasix Strict intake and output Daily weight and low Na diet (2) Pneumonia Qualifiers: Pneumonia type: due to unspecified organism Is this a current diagnosis for this admission?: Yes Plan: Failed utpatient treatment Blood culture has been sent from ED Sputum culture ordered Continue IV Levaquin No leukocytosis (3) COPD (chronic obstructive pulmonary disease) Is this a current diagnosis for this admission?: Yes Plan: On home oxygen and bronchodilator therapy (4) Tobacco dependency Is this a current diagnosis for this admission?: Yes Plan: Smoking cessation encouraged Add nicotine replacement (5) Anemia Qualifiers: Anemia type: iron deficiency Is this a current diagnosis for this admission?: Yes Plan: Anemia chronic disease Check iron studies (6) Acute renal failure superimposed on stage 3 chronic kidney disease Is this a current diagnosis for this admission?: Yes Plan: Monitor renal function while he is being diuresed Strict intake and output Renally dose all medication (7) Hyperkalemia Is this a current diagnosis for this admission?: Yes Plan: Holding Lisinopril IV Lasix given and follow up labs (8) DVT prophylaxis Is this a current diagnosis for this admission?: Yes Plan: Mechanical
[2017-09-17] MEDS: ATORVASTATIN CALCIUM 40 MG TABLET PO SCH (22:53)
[2017-09-17] MEDS: CARVEDILOL 3.125 MG TABLET PO SCH (22:59)
[2017-09-18] MEDS: IPRATROPIUM BROMIDE 0.02% NEB 0.5 MG/2.5 ML AMPUL NEB SCH ×4 (03:09→20:13)
[2017-09-18 05:48] LABS: HEMATOCRIT 23.1 % (37.9-51.0); HGB HCT DIFFERENCE -0.9; MEAN CORPUSCULAR HEMOGLOBIN 23.7 pg (27.0-33.4); MEAN CORPUSCULAR VOLUME 74 fl (80-97); RED BLOOD COUNT 3.12 10^6/uL (4.35-5.55); RED CELL DISTRIBUTION WIDTH 18.4 % (11.5-14.0); WHITE BLOOD COUNT 5.6 10^3/uL (4.0-10.5)
[2017-09-18 06:05] LABS: HEMOGLOBIN 7.4 g/dL (13.5-17.0)
[2017-09-18] MEDS ORDERED: DEXTROSE 50%-WATER SYRINGE 25 GM/50 ML DOSE IV PRN (06:38)
[2017-09-18] MEDS ORDERED: GLUCAGON,HUMAN RECOMB 1 MG INJ IM PRN (06:38)
[2017-09-18] MEDS ORDERED: INSULIN LISPRO 100 UNIT/ML 3 ML VIAL SUBCUT PRN (06:38)
[2017-09-18] MEDS ORDERED: DEXTROSE 50%-WATER SYRINGE 12.5 GM/25 ML DOSE IV PRN (06:38)
[2017-09-18] MEDS ORDERED: DEXTROSE 40% GEL 15 GM TUBE PO PRN (06:38)
[2017-09-18] MEDS ORDERED: DEXTROSE 40% GEL 15 GM TUBE X 2 PO PRN (06:38)
[2017-09-18 06:48] LABS: ANION GAP 14 (5-19); BLOOD UREA NITROGEN 28 mg/dL (7-20); CALCIUM 9.3 mg/dL (8.4-10.2); CARBON DIOXIDE 21 mmol/L (22-30); CHLORIDE 106 mmol/L (98-107); CREATININE RESULT 1.39 mg/dL (0.52-1.25); GLUCOSE 139 mg/dL (75-110); POTASSIUM 5.2 mmol/L (3.6-5.0); SODIUM 141.3 mmol/L (137-145)
[2017-09-18 07:54] LABS: FOLATE 4.36 ng/mL (>2.76)
[2017-09-18] MEDS: ALBUTEROL SULFATE 0.083% NEB 2.5 MG/3 ML AMPUL NEB SCH ×3 (08:48→20:13)
[2017-09-18] MEDS ORDERED: (PENDING PHARMACY ID) (Linagliptin [Tradjenta] 5 MG) PO SCH (10:00)
[2017-09-18] MEDS: CARVEDILOL 3.125 MG TABLET PO SCH ×2 (11:10→23:14)
[2017-09-18] MEDS: ASPIRIN 81 MG TABLET, ENT COATED PO SCH (11:10)
[2017-09-18] MEDS: SITAGLIPTIN PHOSPHATE 50 MG TABLET PO SCH (11:10)
[2017-09-18] MEDS: LEVOFLOXACIN 500 MG/D5W RTU 500 MG/100 ML RTUPB IV SCH (11:11)
[2017-09-18] MEDS: FUROSEMIDE INJ/PF 40 MG/4 ML SDV IV SCH (11:11)
--- NOTE | 2017-09-18 12:59 | PDOC PROGRESS REPORT ---
Subjective Progress Note for:: 09/18/17 Subjective:: Patient is a 57-year-old man with a history of nicotine dependence, chronic respiratory failure on home with home oxygen, congestive heart failure, diabetes presented to the hospital with complaint of worsening shortness of breath associated with productive cough of whitish and yellowish sputum. He was seen in the ER about a week and a half ago and was given Ceftin and azithromycin for pneumonia. He reports since last week he has been sitting up to sleep with worsening shortness of breath. He mostly wheelchair bound due to back injury. Denies fevers but reports chills. He continues to smoke and on home 2L [place]. He takes Lasix 40 mg daily and he does report that he does not remember to take it every day. Chest x-ray on admission with evidence of pleural effusion and elevated BNP. Seen and examined this morning, reports that his breathing is much better. Has been coughing less. Otherwise he reports chronic back pain and ankle pain. He does take Percocet at home at times. Physical Exam Vital Signs: Temp Pulse Resp BP Pulse Ox 97.5 F 81 16 103/60 100 09/18/17 08:00 09/18/17 08:48 09/18/17 08:48 09/18/17 08:00 09/18/17 08:48 Intake & Output 09/17/17 09/18/17 09/19/17 06:59 06:59 06:59 Intake Total 1340 Output Total 600 Balance 740 Weight 68.2 kg General appearance: PRESENT: no acute distress, disheveled, other - looks older than stated age. Head exam: PRESENT: atraumatic, normocephalic Eye exam: PRESENT: EOMI. ABSENT: scleral icterus Mouth exam: PRESENT: moist, tongue midline Teeth exam: PRESENT: dental caries, poor dentation Neck exam: PRESENT: full ROM. ABSENT: JVD Respiratory exam: PRESENT: decreased breath sounds, symmetrical. ABSENT: accessory muscle use, crackles Cardiovascular exam: PRESENT: RRR, +S1. ABSENT: gallop GI/Abdominal exam: PRESENT: normal bowel sounds, soft. ABSENT: tenderness Rectal exam: PRESENT: deferred Extremities exam: PRESENT: full ROM, +2 edema Neurological exam: PRESENT: alert, awake, oriented to person, oriented to place , oriented to time, oriented to situation Psychiatric exam: PRESENT: appropriate affect Skin exam: PRESENT: dry, warm Results Laboratory Results: 09/18/17 04:41 09/18/17 04:41 09/18/17 09/18/17 04:41 04:41 WBC 5.6 RBC 3.12 L Hgb 7.4 L Hct 23.1 L MCV 74 L MCH 23.7 L MCHC 32.0 RDW 18.4 H Plt Count 256 Retic Count (auto) 1.29 Absolute Retic 0.040 Sodium 141.3 Potassium 5.2 H Chloride 106 Carbon Dioxide 21 L Anion Gap 14 BUN 28 H Creatinine 1.39 H Est GFR ( Amer) > 60 Est GFR (Non-Af Amer) 53 L Glucose 139 H Calcium 9.3 Iron 20.1 L TIBC 424 % Saturation 5 Ferritin 26.90 Vitamin B12 434.0 Folate 4.36 09/17/17 15:15 Troponin I < 0.012 Impressions: Chest X-Ray 09/17/17 08:41 IMPRESSION: Increase in right pleural effusion and right middle/lower lobe consolidation New trace left pleural effusion and left basilar airspace disease Assessment & Plan - Diagnosis (1) Acute on chronic combined systolic (congestive) and diastolic (congestive) heart failure Is this a current diagnosis for this admission?: Yes Plan: Chest x-ray on presentation with increased right pleural effusion and right middle lower lobe consolidation. New trace left pleural effusion and left basilar airspace disease. CE negative and repeat BNP in am Continue IV Lasix Strict intake and output Daily weight and low Na diet Encourage to be compliant with diet Echo ordered (2) Pneumonia Qualifiers: Pneumonia type: due to unspecified organism Is this a current diagnosis for this admission?: Yes Plan: Failed outpatient treatment Blood culture negative to date Sputum culture pending Continue IV Levaquin and follow-up cultures (3) COPD (chronic obstructive pulmonary disease) Is this a current diagnosis for this admission?: Yes Plan: On home oxygen and bronchodilator therapy (4) Tobacco dependency Is this a current diagnosis for this admission?: Yes Plan: Smoking cessation encouraged Add nicotine replacement (5) Anemia Qualifiers: Anemia type: iron deficiency Is this a current diagnosis for this admission?: Yes Plan: Anemia chronic disease Fe stores depleted Will add Fe supplements He has been referred to GI for colonoscopy by his PCP and he has been reluctant I have encourage patient once discharged and medically optimized he will need to have the colonoscopy No need for transfusion at this time (6) Acute renal failure superimposed on stage 3 chronic kidney disease Is this a current diagnosis for this admission?: Yes Plan: Monitor renal function while he is being diuresed Renal function stable Strict intake and output Renally dose all medication (7) Type 2 diabetes mellitus Qualifiers: Diabetes mellitus complication status: with kidney complications Is this a current diagnosis for this admission?: Yes Plan: Continue his home p.o. regimen And on sliding scale Monitor BS (8) Hyperkalemia Is this a current diagnosis for this admission?: Yes Plan: Holding Lisinopril Improved and continue IV Lasix (9) Chronic pain Is this a current diagnosis for this admission?: Yes Plan: He takes Percocet at times Percocet added for pain control (10) DVT prophylaxis Is this a current diagnosis for this admission?: Yes Plan: Mechanical
[2017-09-18] MEDS ORDERED: NICOTINE 21 MG/24 HR PATCH.TD24 TD ONE (13:30)
[2017-09-18] MEDS: OXYCODONE-ACETAMINOPHEN 5-325 MG TABLET PO PRN (13:45)
[2017-09-18] MEDS: OXYCODONE HCL IR 5 MG TABLET PO PRN (13:45)
[2017-09-18] MEDS ORDERED: LACTULOSE SYRUP 20 GM/30 ML UDCUP PO ONE (19:08)
--- NOTE | 2017-09-18 19:08 | XCELERA REPORT ---
[address] [address] Transthoracic Echocardiogram Report Name: SUSAN MOREJON Age: 57 yrs Gender: Male : 1960 Patient Status: Inpatient Patient Location: [address] [place] [address] Study Date: 09/18/2017 02:47 PM Height: 66 in Weight: 150 lb BSA: 1.8 m2 Procedure: A complete two-dimensional transthoracic echocardiogram was performed (2D, M-mode, spectral and color flow Doppler). The study was technically adequate with some images being suboptimal in quality. Reason For Study: CHF exacerbation Ordering Physician: HO MILLER Performed By: Rosetta Maya Interpretation Summary Left ventricular systolic function is severely reduced. There is normal left ventricular wall thickness. Doppler measurements suggest pseudonormalized left ventricular relaxation, which is associated with grade II/IV or mild to moderate diastolic dysfunction The left ventricle is mildly dilated. There is severe global hypokinesis of the left ventricle. There is apical wall akinesis There is mid to distal anterior wall akinesis The right ventricular systolic function is normal. The right atrium is normal in size The left atrium is mildly dilated. There is a mild amount of mitral regurgitation There is no mitral valve stenosis. There is a trace to mild amount of aortic regurgitation There is no aortic valve stenosis There is a mild amount of tricuspid regurgitation There is mild to moderate pulmonary hypertension by echo Right ventricular systolic pressure is estimated to be elevated at 40- 50mmHg. The aortic root is not well visualized but is probably normal size. The inferior vena cava appeared normal and decreased < 50% with respiration (RAP 10-15 mmHg) Minimal pericardial effusion. MMode/2D Measurements & Calculations RVDd: 2.8 cm LVIDd: 5.5 cm FS: 11.5 % Ao root diam: IVSd: 0.65 cm LVIDs: 4.9 cm EDV(Teich): 2.7 cm LVPWd: 0.75 cm 147.2 ml Ao root area: ESV(Teich): 110.9 ml 5.6 cm2 EF(Teich): 24.6 % LA dimension: 3.5 cm LVOT diam: LVLd ap4: 9.1 cm SV(MOD-sp4): 2.0 cm EDV(MOD-sp4): 26.0 ml LVOT area: 122.0 ml LVLs ap4: 8.5 cm 3.2 cm2 ESV(MOD-sp4): 96.0 ml EF(MOD-sp4): 21.3 % Doppler Measurements & Calculations MV E max aundrea: MV P1/2t max aundrea: Ao V2 max: AI max aundrea: 120.4 cm/sec 119.9 cm/sec 90.1 cm/sec 290.8 cm/sec MV A max aundrea: MV P1/2t: 39.2 msec Ao max PG: AI max P.4 cm/sec MVA(P1/2t): 5.6 cm2 3.2 mmHg 33.8 mmHg MV E/A: 2.4 MV dec slope: LORENA(V,D): 2.4 cm2AI dec slope: 896.4 cm/sec2 100.8 cm/sec2 AI P1/2t: 845.0 msec LV V1 max PG: PA V2 max: TR max aundrea: 1.9 mmHg 45.4 cm/sec 279.6 cm/sec LV V1 max: PA max P.82 mmHg TR max P.1 cm/sec 31.3 mmHg Left Ventricle The left ventricle is mildly dilated. There is normal left ventricular wall thickness. Left ventricular systolic function is severely reduced. Doppler measurements suggest pseudonormalized left ventricular relaxation, which is associated with grade II/IV or mild to moderate diastolic dysfunction. There is severe global hypokinesis of the left ventricle. There is apical wall akinesis. There is mid to distal anterior wall akinesis. Right Ventricle The right ventricle is grossly normal size. There is normal right ventricular wall thickness. The right ventricular systolic function is normal. Atria The right atrium is normal in size. The left atrium is mildly dilated. Interarterial septum not well visualized and not well dopplered. Cannot comment on ASD/PFO presence. Mitral Valve The mitral valve leaflets are sclerotic, but show no functional abnormalities. There is no mitral valve stenosis. There is a mild amount of mitral regurgitation. Aortic Valve The aortic valve is mildly calcified. There is no aortic valve stenosis. There is a trace to mild amount of aortic regurgitation. Tricuspid Valve The tricuspid valve is not well visualized secondary to technical limitations. There is no tricuspid stenosis. There is a mild amount of tricuspid regurgitation. There is mild to moderate pulmonary hypertension by echo. Right ventricular systolic pressure is estimated to be elevated at 40-50mmHg. Pulmonic Valve The pulmonic valve is not well visualized. Great Vessels The aortic root is not well visualized but is probably normal size. The inferior vena cava appeared normal and decreased < 50% with respiration (RAP 10-15 mmHg). Effusions Minimal pericardial effusion. : HO MILLER > Paola Talamantes
[2017-09-18] MEDS: ATORVASTATIN CALCIUM 40 MG TABLET PO SCH (22:21)
[2017-09-19] MEDS: IPRATROPIUM BROMIDE 0.02% NEB 0.5 MG/2.5 ML AMPUL NEB SCH ×4 (01:54→20:20)
[2017-09-19 06:28] LABS: ANION GAP 12 (5-19); BLOOD UREA NITROGEN 27 mg/dL (7-20); CALCIUM 9.2 mg/dL (8.4-10.2); CARBON DIOXIDE 25 mmol/L (22-30); CHLORIDE 104 mmol/L (98-107); CREATININE RESULT 1.53 mg/dL (0.52-1.25); GLUCOSE 118 mg/dL (75-110); SODIUM 141.4 mmol/L (137-145)
[2017-09-19] MEDS: ALBUTEROL SULFATE 0.083% NEB 2.5 MG/3 ML AMPUL NEB SCH ×3 (08:12→20:20)
[2017-09-19] MEDS: NICOTINE 21 MG/24 HR PATCH.TD24 TD SCH (11:24)
[2017-09-19] MEDS: LEVOFLOXACIN 500 MG/D5W RTU 500 MG/100 ML RTUPB IV SCH (11:39)
[2017-09-19] MEDS: FUROSEMIDE INJ/PF 40 MG/4 ML SDV IV SCH (11:39)
[2017-09-19] MEDS: CARVEDILOL 3.125 MG TABLET PO SCH ×2 (11:39→21:11)
[2017-09-19] MEDS: ASPIRIN 81 MG TABLET, ENT COATED PO SCH (11:39)
[2017-09-19] MEDS: SITAGLIPTIN PHOSPHATE 50 MG TABLET PO SCH (11:46)
--- NOTE | 2017-09-19 13:44 | PDOC CONSULTATION ---
Consultation Consult Date: 09/19/17 Attending physician:: ARFAEL MACHADO Consult reason:: Cardiomyopathy History of Present Illness Admission Date/PCP: 09/17/17 11:46 CHARITY TOURE DO Patient complains of: Denies any significant complaint. History of Present Illness: Patient is a 57-year-old man with a history of nicotine dependence, chronic respiratory failure on home with home oxygen, congestive heart failure, diabetes presented to the hospital with complaint of worsening shortness of breath associated with productive cough of whitish and yellowish sputum. He was seen in the ER about a week and a half ago and was given Ceftin and azithromycin for pneumonia. He reports since last week he has been sitting up to sleep with worsening shortness of breath. He mostly wheelchair bound due to back injury. Denies fevers but reports chills. He continues to smoke and on home 2 L. He takes Lasix 40 mg daily and he does report that he does not remember to take it every day. He does use sea salt with his meals. He denies having any chest pain nor dizziness. Chest x-ray on presentation with increased right pleural effusion and right middle lower lobe consolidation. New trace left pleural effusion and left basilar airspace disease. His BNP elevated to 17,000 and negative troponin. Evidence of leukocytosis. Hospitalist consulted for admission for pneumonia and heart failure. He was started with IV antibiotics and IV Lasix added. He is being admitted to the floor for further management. On repeated questioning denied any chest arm or neck discomfort. Patient does have shortness of breath but claims this has improved significantly. Patient sees Dr. 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 I believe he may have had heart catheterization but he does describe having had a lower extremity angiogram. He did have a nuclear stress test last year Which showed fixed defect but no ischemia. He does describes having myocardial infarction in 2003 and 2006 and claims that he had some tests done at that time Past Medical History Cardiac Medical History: Reports: Congestive Heart Failure, Coronary Artery Disease, Myocardial Infarction - x 2, Hyperlipidema - Possible, Hypertension Denies: Atrial Fibrillation Pulmonary Medical History: Reports: Chronic Obstructive Pulmonary Disease (COPD) , Respiratory Failure - Oxygen dependent Denies: Asthma, Bronchitis, Pneumonia, Tuberculosis Neurological Medical History: Denies: Seizures Endocrine Medical History: Reports: Diabetes Mellitus Type 1, Diabetes Mellitus Type 2 GI Medical History: Reports: Gastroesophageal Reflux Disease Musculoskeltal Medical History: Reports: Arthritis Psychiatric Medical History: Denies: Depression Hematology: Reports: Anemia - Chronic Infectious Medical History: Reports: Methicillin-Resistant Staph Aureus Past Surgical History Past Surgical History: Reports: Orthopedic Surgery - Left forearm Social History Information Source: Patient Smoking Status: Current Every Day Smoker Cigarettes Packs Per Day: 1 Frequency of Alcohol Use: Social - 6 pack of beer per week Hx Recreational Drug Use: No Drugs: None Hx Prescription Drug Abuse: No - Advance Directive Resuscitation Status: Full Code Surrogate healthcare decision maker:: Patient sister by the name of Teresa is the surrogate decision-maker Family History Family History: CVA, DM Parental Family History Reviewed: Yes Children Family History Reviewed: Yes Sibling(s) Family History Reviewed.: Yes Medication/Allergy Home Medications: Aspirin [Aspirin EC] 81 mg PO DAILY PRN 09/17/17 Atorvastatin Calcium [Lipitor 40 mg Tablet] 40 mg PO QHS 09/17/17 Carvedilol [Coreg 3.125 mg Tablet] 3.125 mg PO Q12 09/17/17 Furosemide [Lasix 40 mg Tablet] 40 mg PO DAILY 09/17/17 Linagliptin [Tradjenta] 5 mg PO DAILY 09/17/17 Lisinopril [Prinivil 10 mg Tablet] 10 mg PO DAILY 09/17/17 Allergies/Adverse Reactions: No Known Allergies Allergy (Verified 09/17/17 08:15) Review of Systems Review of Systems: Please see history of present illness and past medical history as wall. Constitutional: No fever or chills reported. Head : No recent chronic headaches, recent head injury. Eyes: No recent eye pain, diplopia, redness, discharge, acute visual changes. Ears: No recent chronic ear pain, acute hearing loss, ear discharge. Oral cavity: No recent ulcerations, bleeding, oral cavity discomfort. Neck: No recent acute neck pain reported. Hematologic: No recent easy bruising or bleeding or hematologic malignancy reported. Lymphatic: No recent lymphatic malignancy, chronic lymphadenopathy reported yet Cardiovascular system review: See history of present illness. Respiratory system review: Presented with recent shortness of breath, wheezing, cough with sputum production but denied hemoptysis, blood clots in the lungs reported. Mild Shortness of breath on exertion Gastrointestinal system review: Negative for any recent acute or chronic abdominal pain, hematemesis, melena, recent change in bowel habits. Genitourinary system review: No recent acute or chronic hematuria, flank pain, UTI etc. reported. Skin system review: Negative for any recent abnormal bruising, no rash, no pruritus reported. Also related to PVD in the right leg/foot Neurologic: No prior history of strokes, mini strokes, seizure disorder. Psychologic: No history of major psychosis or major depression reported. Musculoskeletal: Minor aches and pains reported. No acute joint swelling reported. Endocrine: No recent polyuria, polydipsia, recent heat or cold intolerance. Physical Exam Vital Signs: Temp Pulse Resp BP Pulse Ox 97.4 F 81 18 110/61 99 09/19/17 12:00 09/19/17 12:00 09/19/17 12:00 09/19/17 12:00 09/19/17 12:00 Intake & Output 09/18/17 09/19/17 09/20/17 06:59 06:59 06:59 Intake Total 1340 940 Output Total 600 Balance 740 940 Weight 68.2 kg 68.6 kg Exam: GENERAL: well-nourished and in no acute distress. Alert and oriented x3 HEAD: Atraumatic, normocephalic. EYES: Pupils equal round and reactive to light, extraocular movements intact, sclera anicteric, conjunctiva are normal. ENT: TMs normal, nares patent, oropharynx clear without exudates. Moist mucous membranes. No oral ulcerations or bleeding gums noted NECK: supple without lymphadenopathy. Trachea is central. No cervical or axillary lymphadenopathy noted. Carotids are 2+, JVD WNL LUNGS: Respiration seems nonlabored, no significant accessory muscle action noted. Breath sounds clear to auscultation bilaterally and equal noted. No wheezes rales or rhonchi noted. No significant dullness noted on percussion. CHEST: Palpation of the chest wall shows no significant chest wall tenderness. No other significant abnormalities noted. 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 ABDOMEN: Soft, no significant tenderness appreciated, normoactive bowel sounds. No guarding, no rebound. No rigidity noted . No masses appreciated. EXTREMITIES: Severely diminished to absent, no calf tenderness noted. No clubbing or cyanosis. 1 + pedal edema noted NEUROLOGICAL: Focused neurological exam showed no significant neurologic deficit. Normal speech, no focal weakness appreciated. PSYCH: Normal mood, normal affect. Judgment and insight within normal limits. SKIN: No significant ecchymosis, rash, signs of pruritus noted. MUSCULOSKELETAL EXAM: No significant joint swelling noted. Results Laboratory Results: 09/18/17 04:41 09/19/17 05:15 09/18/17 09/19/17 04:41 05:15 Sodium 141.4 Potassium 5.0 Chloride 104 Carbon Dioxide 25 Anion Gap 12 BUN 27 H Creatinine 1.53 H Est GFR ( Amer) 57 L Est GFR (Non-Af Amer) 47 L Glucose 118 H Calcium 9.2 Magnesium 1.8 09/17/17 16:00 Nasophary (Mrsa Only) MRSA Surveillance Culture - Final NO MRSA RECOVERED 09/17/17 09/19/17 15:15 05:15 Troponin I < 0.012 NT-Pro-B Natriuret Pep 93492 H EKG Comments: Low voltage QRS frontal leads, QS complex V1 to V3 indicative of prior anterior UT. Impressions: Chest X-Ray 09/17/17 08:41 IMPRESSION: Increase in right pleural effusion and right middle/lower lobe consolidation New trace left pleural effusion and left basilar airspace disease Assessment & Plan - Diagnosis (1) Cardiomyopathy Qualifiers: Cardiomyopathy type: unspecified Qualified Code(s): I42.9 - Cardiomyopathy , unspecified Is this a current diagnosis for this admission?: Yes (2) CHF (congestive heart failure) Qualifiers: Congestive heart failure type: combined Congestive heart failure chronicity : acute on chronic Qualified Code(s): I50.43 - Acute on chronic combined systolic (congestive) and diastolic (congestive) heart failure Is this a current diagnosis for this admission?: Yes (3) Coronary artery disease Qualifiers: Coronary Disease-Associated Artery/Lesion type: [place] artery [place] vs. transplanted heart: [place] heart Associated angina: angina presence unspecified Qualified Code(s): I25.10 - Atherosclerotic heart disease of [place] coronary artery without angina pectoris Is this a current diagnosis for this admission?: Yes (4) Chronic kidney disease Is this a current diagnosis for this admission?: Yes (5) COPD (chronic obstructive pulmonary disease) Is this a current diagnosis for this admission?: Yes (6) Type 2 diabetes mellitus Qualifiers: Diabetes mellitus complication status: with kidney complications Diabetes mellitus penitentiary insulin use: unspecified penitentiary insulin use status Chronic kidney disease stage: stage 3 (moderate) Is this a current diagnosis for this admission?: Yes (7) Peripheral vascular disease Is this a current diagnosis for this admission?: Yes - Notes Notes: Coronary artery disease: Patient is denying any angina.. His nuclear stress test from last year reviewed. It showed mainly a fixed defect which corresponds to the area noted to be akinetic on the echocardiogram. LVEF seems to be lower. At this point will recommend optimization of therapy of CAD and cardiomyopathy. Cardiomyopathy: Medical management to be optimized. Patient should be considered for prophylactic defibrillator placement but would recommend LifeVest to be placed prior to discharge. CHF: Currently seems compensated based on clinical exam. Continue baseline diuretics. Have placed patient on entresto, continue carvedilol and increase as tolerated. We will add digoxin to the regimen. Peripheral vascular disease: This is severe. Patient being managed expectantly. He can follow-up with his mechanical engineering manager. COPD: Patient has been advised to quit smoking. Continue with current bronchodilator therapy. Diabetes: Currently being well managed by hospitalist. Chronic kidney disease: Currently stage III. Continue current management plan. - Time Time Spent: 30 to 50 Minutes - CODE STATUS was discussed, patient remains full code. Surrogate decision-maker patient's sister. Multiple medical problems were addressed. More than 50% of the time spent coordinating care, discussing management plans with involved caregivers. Management plans discussed with involved personnels. Medical decision making was of moderate to high complexity , patient's has multiple comorbidities. Medications reviewed and adjusted accordingly: Yes
[2017-09-19] MEDS ORDERED: IRON SUCROSE COMPLEX INJ/PF 100 MG/5 ML SDV IV ONE (15:16)
--- NOTE | 2017-09-19 15:20 | PDOC PROGRESS REPORT ---
Subjective Progress Note for:: 09/19/17 Subjective:: Patient is a 57-year-old man with a history of nicotine dependence, chronic respiratory failure on home with home oxygen, congestive heart failure, diabetes presented to the hospital on 09/17/2017 with complaint of worsening shortness of breath associated with productive cough of whitish and yellowish sputum. He was seen in the ER about a week and a half ago and was given Ceftin and azithromycin for pneumonia. He reports since last week he has been sitting up to sleep with worsening shortness of breath. He mostly wheelchair bound due to back injury. Denies fevers but reports chills. He continues to smoke and on home 2L NC. He takes Lasix 40 mg daily and he does report that he does not remember to take it every day. Chest x-ray on admission with evidence of pleural effusion and elevated BNP. Seen and examined this morning, he was found sitting on the side of the bed and states to have been up to the bathroom. He reports feeling much better and no reports of chest pain. His back pain better controlled and he had a bowel movement. He had an echo done this admission with severely reduced systolic function. Severe global hypokinesis of the left ventricle, apical wall akinesis and distal anterior wall. Physical Exam Vital Signs: Temp Pulse Resp BP Pulse Ox 97.4 F 80 14 110/61 99 09/19/17 12:00 09/19/17 14:44 09/19/17 14:44 09/19/17 12:00 09/19/17 12:00 Intake & Output 09/18/17 09/19/17 09/20/17 06:59 06:59 06:59 Intake Total 1340 940 Output Total 600 Balance 740 940 Weight 68.2 kg 68.6 kg General appearance: PRESENT: no acute distress, disheveled, thin, other - Looks older than stated age Head exam: PRESENT: atraumatic, normocephalic Eye exam: PRESENT: EOMI Mouth exam: PRESENT: moist, neck supple Neck exam: PRESENT: full ROM, JVD Respiratory exam: PRESENT: decreased breath sounds, symmetrical, unlabored. ABSENT: accessory muscle use, retraction, wheezes Cardiovascular exam: PRESENT: RRR, +S2. ABSENT: gallop GI/Abdominal exam: PRESENT: distended, normal bowel sounds, soft. ABSENT: tenderness Rectal exam: PRESENT: deferred Extremities exam: PRESENT: full ROM, +2 edema Musculoskeletal exam: PRESENT: full ROM Neurological exam: PRESENT: alert, awake, oriented to person, oriented to place , oriented to time, oriented to situation Psychiatric exam: PRESENT: appropriate affect, normal mood Skin exam: PRESENT: dry, warm Results Laboratory Results: 09/18/17 04:41 09/19/17 05:15 09/18/17 09/19/17 04:41 05:15 Sodium 141.4 Potassium 5.0 Chloride 104 Carbon Dioxide 25 Anion Gap 12 BUN 27 H Creatinine 1.53 H Est GFR ( Amer) 57 L Est GFR (Non-Af Amer) 47 L Glucose 118 H Calcium 9.2 Magnesium 1.8 09/17/17 16:00 Nasophary (Mrsa Only) MRSA Surveillance Culture - Final NO MRSA RECOVERED 09/17/17 09/19/17 15:15 05:15 Troponin I < 0.012 NT-Pro-B Natriuret Pep 23738 H Impressions: Chest X-Ray 09/17/17 08:41 IMPRESSION: Increase in right pleural effusion and right middle/lower lobe consolidation New trace left pleural effusion and left basilar airspace disease Assessment & Plan - Diagnosis (1) Acute on chronic combined systolic (congestive) and diastolic (congestive) heart failure Is this a current diagnosis for this admission?: Yes Plan: Appreciated cardiology input Continue IV Lasix and plan to transition to p.o. in a.m. Started on Entresto by cardiology Strict intake and output Daily weight and low Na diet Encourage to be compliant with diet and medications Echo done this admission with severely reduced systolic function. Severe global hypokinesis of the left ventricle, apical wall akinesis and distal anterior wall. 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 machine operator which he has not seen in a while At this time will come in for medical management to be optimized It should be considered for prophylactic defibrillator placement He recommend for a lifevest to be placed on discharge Arrangement will be made (3) Pneumonia Qualifiers: Pneumonia type: due to unspecified organism Is this a current diagnosis for this admission?: Yes Plan: Failed outpatient treatment Blood culture negative to date Sputum culture with GPC Continue IV Levaquin and follow-up cultures (4) COPD (chronic obstructive pulmonary disease) Is this a current diagnosis for this admission?: Yes Plan: On home oxygen and bronchodilator therapy (5) Tobacco dependency Is this a current diagnosis for this admission?: Yes Plan: Smoking cessation encouraged Nicotine replacement (6) Anemia Qualifiers: Anemia type: iron deficiency Is this a current diagnosis for this admission?: Yes Plan: Anemia chronic disease Fe stores depleted Fe supplements added He has been referred to GI for colonoscopy by his PCP and he has been reluctant I have encourage patient once discharged and medically optimized he will need to have the colonoscopy No need for transfusion at this time (7) Acute renal failure superimposed on stage 3 chronic kidney disease Is this a current diagnosis for this admission?: Yes Plan: Monitor renal function while he is being diuresed Renal function close to baseline Strict intake and output Renally dose all medication (8) Type 2 diabetes mellitus Qualifiers: Diabetes mellitus complication status: with kidney complications Diabetes mellitus terminal worker insulin use: unspecified intermediate insulin use status Chronic kidney disease stage: stage 3 (moderate) Is this a current diagnosis for this admission?: Yes Plan: Continue his home p.o. regimen and on sliding scale (9) Hyperkalemia Is this a current diagnosis for this admission?: Yes Plan: Resolved (10) Chronic pain Is this a current diagnosis for this admission?: Yes Plan: On Percocet for pain control (11) DVT prophylaxis Is this a current diagnosis for this admission?: Yes Plan: Mechanical - Time Time Spent with patient: 25-34 minutes
[2017-09-19] MEDS: FERROUS SULFATE 325 MG TABLET PO SCH (17:55)
[2017-09-19] MEDS ORDERED: SACUBITRIL/VALSARTAN 49 MG/51 MG TABLET PO SCH (18:00)
[2017-09-19] MEDS: SACUBITRIL/VALSARTAN 24 MG/26 MG TABLET PO SCH (21:11)
[2017-09-19] MEDS: ATORVASTATIN CALCIUM 40 MG TABLET PO SCH (21:11)
[2017-09-19] MEDS: OXYCODONE-ACETAMINOPHEN 5-325 MG TABLET PO PRN (21:11)
[2017-09-20] MEDS: IPRATROPIUM BROMIDE 0.02% NEB 0.5 MG/2.5 ML AMPUL NEB SCH ×4 (02:02→19:32)
[2017-09-20 05:49] LABS: HEMATOCRIT 22.6 % (37.9-51.0); HGB HCT DIFFERENCE -0.7; MEAN CORPUSCULAR HEMOGLOBIN 23.8 pg (27.0-33.4); MEAN CORPUSCULAR HGB CONC 32.3 g/dL (32.0-36.0); MEAN CORPUSCULAR VOLUME 74 fl (80-97); RED BLOOD COUNT 3.06 10^6/uL (4.35-5.55); RED CELL DISTRIBUTION WIDTH 17.9 % (11.5-14.0); WHITE BLOOD COUNT 6.4 10^3/uL (4.0-10.5)
[2017-09-20 06:00] LABS: HEMOGLOBIN 7.3 g/dL (13.5-17.0)
[2017-09-20 06:21] LABS: ANION GAP 12 (5-19); BLOOD UREA NITROGEN 28 mg/dL (7-20); CALCIUM 8.9 mg/dL (8.4-10.2); CARBON DIOXIDE 24 mmol/L (22-30); CHLORIDE 102 mmol/L (98-107); CREATININE RESULT 1.53 mg/dL (0.52-1.25); GLUCOSE 114 mg/dL (75-110); POTASSIUM 4.7 mmol/L (3.6-5.0); SODIUM 138.4 mmol/L (137-145)
[2017-09-20] MEDS: ALBUTEROL SULFATE 0.083% NEB 2.5 MG/3 ML AMPUL NEB SCH ×3 (07:46→19:32)
[2017-09-20] MEDS: FERROUS SULFATE 325 MG TABLET PO SCH ×2 (09:25→18:02)
[2017-09-20] MEDS: CARVEDILOL 3.125 MG TABLET PO SCH ×2 (09:25→21:39)
[2017-09-20] MEDS: ASPIRIN 81 MG TABLET, ENT COATED PO SCH (09:26)
[2017-09-20] MEDS: LEVOFLOXACIN 500 MG/D5W RTU 500 MG/100 ML RTUPB IV SCH (09:26)
[2017-09-20] MEDS: NICOTINE 21 MG/24 HR PATCH.TD24 TD SCH (09:29)
[2017-09-20] MEDS: SITAGLIPTIN PHOSPHATE 50 MG TABLET PO SCH (09:29)
[2017-09-20] MEDS: SACUBITRIL/VALSARTAN 24 MG/26 MG TABLET PO SCH ×2 (09:41→21:39)
[2017-09-20] MEDS: FUROSEMIDE INJ/PF 40 MG/4 ML SDV IV SCH (09:42)
--- NOTE | 2017-09-20 13:26 | PDOC PROGRESS REPORT ---
Subjective Progress Note for:: 09/20/17 Subjective:: Patient is a 57-year-old man with a history of nicotine dependence, chronic respiratory failure on home with home oxygen, congestive heart failure, diabetes presented to the hospital on 09/17/2017 with complaint of worsening shortness of breath associated with productive cough of whitish and yellowish sputum. He was seen in the ER about a week and a half ago and was given Ceftin and azithromycin for pneumonia. He reports since last week he has been sitting up to sleep with worsening shortness of breath. He mostly wheelchair bound due to back injury. Denies fevers but reports chills. He continues to smoke and on home 2L NC. He takes Lasix 40 mg daily and he does report that he does not remember to take it every day. Chest x-ray on admission with evidence of pleural effusion and elevated BNP. Seen and examined this morning, he was found sitting on the side of the bed and states to have been up to the bathroom. He reports feeling much better and no reports of chest pain. His back pain better controlled and he had a bowel movement. He had an echo done this admission with severely reduced systolic function. Severe global hypokinesis of the left ventricle, apical wall akinesis and distal anterior wall. He was seen and evaluated by cardiology and started on Entresto. He will eventually need to have AICD placement. In the meanwhile he will get a LifeVest prior to discharge. The medical order form for the last visit has been faxed and hopefully he can fitted for it in am. Seen and examined this am, he continues to report feeling better and his breathing to baseline and his LE edema much improved. He was updated on the plan. Physical Exam Vital Signs: Temp Pulse Resp BP Pulse Ox 97.4 F 77 14 109/60 96 09/20/17 07:41 09/20/17 07:46 09/20/17 07:46 09/20/17 07:41 09/20/17 07:46 Intake & Output 09/19/17 09/20/17 09/21/17 06:59 06:59 06:59 Intake Total 940 2534 Balance 940 2534 Weight 68.6 kg 74.5 kg General appearance: PRESENT: no acute distress, disheveled, thin - Looks older than stated age, other Eye exam: PRESENT: EOMI Mouth exam: PRESENT: moist, neck supple, tongue midline Teeth exam: PRESENT: dental caries Neck exam: PRESENT: full ROM. ABSENT: JVD Respiratory exam: PRESENT: decreased breath sounds, symmetrical, unlabored. ABSENT: accessory muscle use, wheezes Cardiovascular exam: PRESENT: gallop, +S1, +S2. ABSENT: clicks GI/Abdominal exam: PRESENT: normal bowel sounds, soft. ABSENT: distended, tenderness Rectal exam: PRESENT: deferred Extremities exam: PRESENT: full ROM, pedal edema, +1 edema Neurological exam: PRESENT: alert, awake, oriented to person, oriented to place , oriented to time, oriented to situation Psychiatric exam: PRESENT: appropriate affect, normal mood Skin exam: PRESENT: dry, warm Results Laboratory Results: 09/20/17 04:55 09/20/17 04:55 09/19/17 09/20/17 09/20/17 05:15 04:55 04:55 WBC 6.4 RBC 3.06 L Hgb 7.3 L Hct 22.6 L MCV 74 L MCH 23.8 L MCHC 32.3 RDW 17.9 H Plt Count 261 Sodium 138.4 Potassium 4.7 Chloride 102 Carbon Dioxide 24 Anion Gap 12 BUN 28 H Creatinine 1.53 H Est GFR ( Amer) 57 L Est GFR (Non-Af Amer) 47 L Glucose 114 H Calcium 8.9 Magnesium 1.7 09/17/17 23:38 Sputum Gram Stain - Final 09/17/17 23:38 Sputum Sputum Culture - Final NORMAL POONAM 09/17/17 16:00 Nasophary (Mrsa Only) MRSA Surveillance Culture - Final NO MRSA RECOVERED 09/17/17 09/19/17 15:15 05:15 Troponin I < 0.012 NT-Pro-B Natriuret Pep 93111 H Impressions: Chest X-Ray 09/17/17 08:41 IMPRESSION: Increase in right pleural effusion and right middle/lower lobe consolidation New trace left pleural effusion and left basilar airspace disease Assessment & Plan - Diagnosis (1) Acute on chronic combined systolic (congestive) and diastolic (congestive) heart failure Is this a current diagnosis for this admission?: Yes Plan: Appreciated cardiology input IV Lasix 40 mg daily changed to p.o. 40 mg daily Started on Entresto by cardiology Strict intake and output Daily weight and low Na diet Encourage to be compliant with diet and medications Echo done this admission with severely reduced systolic function. Severe global hypokinesis of the left ventricle, apical wall akinesis and distal anterior wall. 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 which he has not seen in a while At this time medical management to be optimized He should be considered for prophylactic defibrillator placement He recommend for a lifevest to be placed on discharge Arrangement has been made (3) Pneumonia Qualifiers: Pneumonia type: due to unspecified organism Is this a current diagnosis for this admission?: Yes Plan: Failed outpatient treatment Blood culture negative to date Sputum culture with normal poonam Continue IV Levaquin for 5 days total Last day on 09/21/17 (4) COPD (chronic obstructive pulmonary disease) Is this a current diagnosis for this admission?: Yes Plan: On home oxygen and bronchodilator therapy (5) Tobacco dependency Is this a current diagnosis for this admission?: Yes Plan: Smoking cessation encouraged Nicotine replacement (6) Anemia Qualifiers: Anemia type: iron deficiency Is this a current diagnosis for this admission?: Yes Plan: Anemia chronic disease Fe stores depleted Continue Fe supplementation and Hg 7.3 today He has been referred to GI for colonoscopy by his PCP and he has been reluctant I have encourage patient once discharged and medically optimized he will need to have the colonoscopy No need for transfusion at this time (7) Acute renal failure superimposed on stage 3 chronic kidney disease Is this a current diagnosis for this admission?: Yes Plan: Mild Monitor renal function while he is being diuresed Renal function close to baseline Strict intake and output Renally dose all medication (8) Type 2 diabetes mellitus Qualifiers: Diabetes mellitus complication status: with kidney complications Diabetes mellitus senior living insulin use: unspecified senior living insulin use status Chronic kidney disease stage: stage 3 (moderate) Is this a current diagnosis for this admission?: Yes Plan: Continue his home p.o. regimen and on sliding scale (9) Chronic pain Is this a current diagnosis for this admission?: Yes Plan: On Percocet for pain control (10) DVT prophylaxis Is this a current diagnosis for this admission?: Yes Plan: Mechanical - Time Time Spent with patient: 25-34 minutes Within: within 24 hours - pending lifevest
--- NOTE | 2017-09-20 15:26 | PDOC PROGRESS REPORT ---
Subjective Progress Note for:: 09/20/17 Subjective:: Patient seems to be doing better with gradual improvement. Pt is denying any chest arm or neck discomfort. Patient denying any PND, orthopnea. Patient denied any sustained palpitations, dizziness, syncope, near syncope. Patient denying any fever chills. Patient denying any other significant discomfort. Patient is maintaining sinus rhythm. Review of systems: Rest review of systems negative. Medications: Medications have been reviewed. Physical Exam Vital Signs: Temp Pulse Resp BP Pulse Ox 97.4 F 77 16 109/60 97 09/20/17 07:41 09/20/17 14:26 09/20/17 14:26 09/20/17 07:41 09/20/17 14:26 Intake & Output 09/19/17 09/20/17 09/21/17 06:59 06:59 06:59 Intake Total 940 2534 Balance 940 2534 Weight 68.6 kg 74.5 kg Exam: GENERAL: well-nourished and in no acute distress. Alert and oriented x3 HEAD: Atraumatic, normocephalic. EYES: Pupils equal round and reactive to light, extraocular movements intact, sclera anicteric, conjunctiva are normal. ENT: TMs normal, nares patent, oropharynx clear without exudates. Moist mucous membranes. No oral ulcerations or bleeding gums noted NECK: supple without lymphadenopathy. Trachea is central. No cervical or axillary lymphadenopathy noted. Carotids are 2+, JVD WNL LUNGS: Respiration seems nonlabored, no significant accessory muscle action noted. Breath sounds clear to auscultation bilaterally and equal noted. No wheezes rales or rhonchi noted. No significant dullness noted on percussion. CHEST: Palpation of the chest wall shows no significant chest wall tenderness. No other significant abnormalities noted. 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 ABDOMEN: Soft, no significant tenderness appreciated, normoactive bowel sounds. No guarding, no rebound. No rigidity noted . No masses appreciated. EXTREMITIES: Pedal pulses are markedly diminished , no calf tenderness noted. No clubbing or cyanosis.trace to 1+ pedal edema noted. Edema today limited to plantar aspect. NEUROLOGICAL: Focused neurological exam showed no significant neurologic deficit. Normal speech, no focal weakness appreciated. PSYCH: Normal mood, normal affect. Judgment and insight within normal limits. SKIN: No significant ecchymosis, rash, ulcerations or signs of pruritus noted. MUSCULOSKELETAL EXAM: No significant joint swelling noted. Results Laboratory Results: 09/20/17 04:55 09/20/17 04:55 09/18/17 09/19/17 09/20/17 04:41 05:15 04:55 WBC 6.4 RBC 3.06 L Hgb 7.3 L Hct 22.6 L MCV 74 L MCH 23.8 L MCHC 32.3 RDW 17.9 H Plt Count 261 Sodium Potassium Chloride Carbon Dioxide Anion Gap BUN Creatinine Est GFR ( Amer) Est GFR (Non-Af Amer) Glucose Calcium Magnesium 1.7 Transferrin 366 09/20/17 04:55 WBC RBC Hgb Hct MCV MCH MCHC RDW Plt Count Sodium 138.4 Potassium 4.7 Chloride 102 Carbon Dioxide 24 Anion Gap 12 BUN 28 H Creatinine 1.53 H Est GFR ( Amer) 57 L Est GFR (Non-Af Amer) 47 L Glucose 114 H Calcium 8.9 Magnesium Transferrin 09/17/17 23:38 Sputum Gram Stain - Final 09/17/17 23:38 Sputum Sputum Culture - Final NORMAL RAMIRO 09/17/17 09/19/17 15:15 05:15 Troponin I < 0.012 NT-Pro-B Natriuret Pep 64580 H Impressions: Chest X-Ray 09/17/17 08:41 IMPRESSION: Increase in right pleural effusion and right middle/lower lobe consolidation New trace left pleural effusion and left basilar airspace disease Assessment & Plan - Diagnosis (1) Cardiomyopathy Qualifiers: Cardiomyopathy type: unspecified Qualified Code(s): I42.9 - Cardiomyopathy , unspecified Is this a current diagnosis for this admission?: Yes (2) CHF (congestive heart failure) Qualifiers: Congestive heart failure type: combined Congestive heart failure chronicity : acute on chronic Qualified Code(s): I50.43 - Acute on chronic combined systolic (congestive) and diastolic (congestive) heart failure Is this a current diagnosis for this admission?: Yes (3) Coronary artery disease Qualifiers: Coronary Disease-Associated Artery/Lesion type: [place] artery [place] vs. 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 Consider blood transfusion in view of known CAD to bring hemoglobin above 8 g percent. - Notes Notes: Coronary artery disease: Patient is denying any angina.. His nuclear stress test from last year reviewed. It showed mainly a fixed defect which corresponds to the area noted to be akinetic on the echocardiogram. LVEF seems to be lower. At this point have optimized therapy of CAD and cardiomyopathy. Cardiomyopathy: Medical management to be optimized. Patient should be considered for prophylactic defibrillator placement but would recommend LifeVest to be placed prior to discharge. Forms were signed yesterday. Hopefully patient will have this put on prior to discharge. Patient expected to be discharged tomorrow. CHF: Currently seems compensated based on clinical exam. Continue baseline diuretics. Have placed patient on entresto, continue carvedilol and increase as tolerated. We will add digoxin to the regimen. Peripheral vascular disease: This is severe. Patient being managed expectantly. 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 COPD: Patient has been advised to quit smoking. Continue with current bronchodilator therapy. Diabetes: Currently being well managed by hospitalist. Chronic kidney disease: Currently stage III. Continue current management plan. - Time Time with patient: Greater than 35 minutes - CODE STATUS was discussed, patient remains full code. Surrogate decision-maker unchanged. Multiple medical problems were addressed. More than 50% of the time spent coordinating care, discussing management plans with involved caregivers. Management plans discussed with involved personnels. Medical decision making was of moderate to high complexity, patient's has multiple comorbidities. Discussed need for defibrillator placement. Discussed need for optimization of medical management. Discussed that he will need a repeat echocardiogram in about 6-12 weeks. Considerable time spent regarding use of LifeVest. This was arranged by me yesterday to be put on prior to discharge. Medications reviewed and adjusted accordingly: Yes
[2017-09-20] MEDS: ATORVASTATIN CALCIUM 40 MG TABLET PO SCH (21:39)
[2017-09-20] MEDS: OXYCODONE-ACETAMINOPHEN 5-325 MG TABLET PO PRN (21:40)
[2017-09-20] MEDS: OXYCODONE HCL IR 5 MG TABLET PO PRN (21:41)
[2017-09-21] MEDS: IPRATROPIUM BROMIDE 0.02% NEB 0.5 MG/2.5 ML AMPUL NEB SCH ×3 (01:31→13:26)
[2017-09-21] MEDS: OXYCODONE-ACETAMINOPHEN 5-325 MG TABLET PO PRN (07:27)
[2017-09-21 07:37] LABS: HEMATOCRIT 22.4 % (37.9-51.0); HGB HCT DIFFERENCE -0.5; MEAN CORPUSCULAR HEMOGLOBIN 23.7 pg (27.0-33.4); MEAN CORPUSCULAR HGB CONC 32.4 g/dL (32.0-36.0); MEAN CORPUSCULAR VOLUME 73 fl (80-97); RED BLOOD COUNT 3.07 10^6/uL (4.35-5.55); RED CELL DISTRIBUTION WIDTH 18.4 % (11.5-14.0); WHITE BLOOD COUNT 5.6 10^3/uL (4.0-10.5)
[2017-09-21] MEDS: OXYCODONE HCL IR 5 MG TABLET PO PRN (07:37)
[2017-09-21] MEDS: FERROUS SULFATE 325 MG TABLET PO SCH ×2 (07:37→11:57)
[2017-09-21 07:42] LABS: ANION GAP 10 (5-19); BLOOD UREA NITROGEN 22 mg/dL (7-20); CARBON DIOXIDE 26 mmol/L (22-30); CHLORIDE 103 mmol/L (98-107); CREATININE RESULT 1.39 mg/dL (0.52-1.25); GLUCOSE 93 mg/dL (75-110); POTASSIUM 4.3 mmol/L (3.6-5.0); SODIUM 139.2 mmol/L (137-145)
[2017-09-21] MEDS: ALBUTEROL SULFATE 0.083% NEB 2.5 MG/3 ML AMPUL NEB SCH ×2 (07:47→13:26)
[2017-09-21 07:50] LABS: HEMOGLOBIN 7.3 g/dL (13.5-17.0)
[2017-09-21] MEDS: ASPIRIN 81 MG TABLET, ENT COATED PO SCH (09:36)
[2017-09-21] MEDS: LEVOFLOXACIN 500 MG/D5W RTU 500 MG/100 ML RTUPB IV SCH (09:37)
[2017-09-21] MEDS: CARVEDILOL 3.125 MG TABLET PO SCH (09:38)
[2017-09-21] MEDS: NICOTINE 21 MG/24 HR PATCH.TD24 TD SCH (09:38)
[2017-09-21] MEDS: SITAGLIPTIN PHOSPHATE 50 MG TABLET PO SCH (09:38)
[2017-09-21] MEDS: SACUBITRIL/VALSARTAN 24 MG/26 MG TABLET PO SCH (09:42)
--- NOTE | 2017-09-21 09:46 | EKG REPORT ---
SEVERITY:- ABNORMAL ECG - SINUS RHYTHM FIRST DEGREE AV BLOCK ANTERIOR INFARCT, AGE INDETERMINATE BORDERLINE T ABNORMALITIES, INFERIOR LEADS : Confirmed by: Asuncion Addison 21-Sep-2017 09:45:22
[2017-09-21] MEDS ORDERED: FUROSEMIDE 40 MG TABLET PO SCH (10:00)
[2017-09-21] MEDS ORDERED: ONDANSETRON HCL INJ/PF 4 MG/2 ML SDV IV PRN (13:37)
--- NOTE | 2017-09-21 13:59 | PDOC DISCHARGE SUMMARY ---
General - Admit/Disc Date/PCP Admission Date/Primary Care Provider: 09/17/17 11:46 CHARITY TOURE, Discharge Date: 09/21/17 - Discharge Diagnosis (1) Acute on chronic combined systolic (congestive) and diastolic (congestive) heart failure Is this a current diagnosis for this admission?: Yes (2) Cardiomyopathy Is this a current diagnosis for this admission?: Yes (3) Pneumonia Is this a current diagnosis for this admission?: Yes Summary: Gram-negative likely Partially treated prior admission (4) COPD (chronic obstructive pulmonary disease) Is this a current diagnosis for this admission?: Yes (5) Tobacco dependency Is this a current diagnosis for this admission?: Yes (6) Anemia Is this a current diagnosis for this admission?: Yes (7) Acute renal failure superimposed on stage 3 chronic kidney disease Is this a current diagnosis for this admission?: Yes (8) Type 2 diabetes mellitus Is this a current diagnosis for this admission?: Yes (9) Chronic pain Is this a current diagnosis for this admission?: Yes (10) DVT prophylaxis Is this a current diagnosis for this admission?: Yes - Additional Information Resuscitation Status: Full Code Discharge Diet: Cardiac, Diabetic Discharge Activity: Activity As Tolerated, Balance Activity w/Rest, Weigh Daily Home Medications: Aspirin [Aspirin EC] 81 mg PO DAILY PRN 09/17/17 Atorvastatin Calcium [Lipitor 40 mg Tablet] 40 mg PO QHS 09/17/17 Carvedilol [Coreg 3.125 mg Tablet] 3.125 mg PO Q12 09/17/17 Furosemide [Lasix 40 mg Tablet] 40 mg PO DAILY 09/17/17 Linagliptin [Tradjenta] 5 mg PO DAILY 09/17/17 Digoxin [Lanoxin 0.125 mg Tablet] 0.125 mg PO DAILY #30 tablet 09/21/17 Furosemide [Lasix 40 mg Tablet] 40 mg PO DAILY tablet 09/21/17 Sacubitril/Valsartan [Entresto 24 mg/26 mg Tablet] 1 tab PO Q12 #60 tablet 09/21 History of Present Illness History of Present Illness: Patient is a 57-year-old man with a history of nicotine dependence, chronic respiratory failure on home with home oxygen, congestive heart failure, diabetes presented to the hospital with complaint of worsening shortness of breath associated with productive cough of whitish and yellowish sputum. He was seen in the ER about a week and a half ago and was given Ceftin and azithromycin for pneumonia. He reports since last week he has been sitting up to sleep with worsening shortness of breath. He mostly wheelchair bound due to back injury. Denies fevers but reports chills. He continues to smoke and on home 2 L. He takes Lasix 40 mg daily and he does report that he does not remember to take it every day. He does use sea salt with his meals. He denies having any chest pain nor dizziness. Chest x-ray on presentation with increased right pleural effusion and right middle lower lobe consolidation. New trace left pleural effusion and left basilar airspace disease. His BNP elevated to 17,000 and negative troponin. Evidence of leukocytosis. Hospitalist consulted for admission for pneumonia and heart failure. He was started with IV antibiotics and IV Lasix added. He is being admitted to the floor for further management. Hospital Course Hospital Course: Patient is a 57-year-old man with a history of nicotine dependence, chronic respiratory failure on home with home oxygen, congestive heart failure, diabetes presented to the hospital on 09/17/2017 with complaint of worsening shortness of breath associated with productive cough of whitish and yellowish sputum. He was seen in the ER about a week and a half ago and was given Ceftin and azithromycin for pneumonia. He reports since the week prior to admission he has been sitting up to sleep with worsening shortness of breath. He mostly wheelchair bound due to back injury. Denies fevers but reports chills. He continues to smoke and on home 2L [place]. He takes Lasix 40 mg daily and he does report that he does not remember to take it every day. Chest x-ray on admission with evidence of pleural effusion and elevated BNP. He had an echo done this admission with severely reduced systolic function. Severe global hypokinesis of the left ventricle, apical wall akinesis and distal anterior wall. He was seen and evaluated by cardiology and started on Entresto and recommended digoxin. He will eventually need to have AICD placement. In the meanwhile he will get a LifeVest prior to discharge. The medical order form for the last visit has been faxed and he is to be fitted and discharge. His blood culture negative and sputum culture with normal poonam. He has been anemic and has been refusing to get colonoscopy. He was given IV Venofer and started on p.o. iron this admission. He has been encouraged to follow-up with PCP when medically optimized for further workup. He was counseled on smoking cessation. He was seen and examined this morning, continues to report feeling better and his breathing at baseline and his LE edema much improved. He completed 5 days of IV Levaquin. He is being discharged home needs follow-up with PCP and cardiology. He is aware that he will need further cardiology workup and it is very important that he keeps up his appointment. Physical Exam Vital Signs: Temp Pulse Resp BP Pulse Ox 98.2 F 82 14 103/59 L 98 09/21/17 11:16 09/21/17 13:26 09/21/17 13:26 09/21/17 11:16 09/21/17 11:16 Intake & Output 09/20/17 09/21/17 09/22/17 06:59 06:59 06:59 Intake Total 2534 2100 Balance 2534 2100 Weight 74.5 kg 74.5 kg General appearance: PRESENT: no acute distress, disheveled, other - looks older than stated age Head exam: PRESENT: atraumatic, normocephalic Eye exam: PRESENT: EOMI Mouth exam: PRESENT: neck supple, tongue midline Teeth exam: PRESENT: dental caries Neck exam: PRESENT: full ROM. ABSENT: JVD Respiratory exam: PRESENT: decreased breath sounds, symmetrical, unlabored. ABSENT: accessory muscle use, wheezes Cardiovascular exam: PRESENT: RRR, +S1, +S2 GI/Abdominal exam: PRESENT: normal bowel sounds, soft. ABSENT: distended, tenderness Rectal exam: PRESENT: deferred Extremities exam: PRESENT: full ROM, pedal edema Musculoskeletal exam: PRESENT: full ROM Neurological exam: PRESENT: alert, awake, oriented to person, oriented to place , oriented to time, oriented to situation Psychiatric exam: PRESENT: appropriate affect, normal mood Results Laboratory Results: 09/21/17 06:49 09/21/17 06:49 09/21/17 09/21/17 06:49 06:49 WBC 5.6 RBC 3.07 L Hgb 7.3 L Hct 22.4 L MCV 73 L MCH 23.7 L MCHC 32.4 RDW 18.4 H Plt Count 273 Sodium 139.2 Potassium 4.3 Chloride 103 Carbon Dioxide 26 Anion Gap 10 BUN 22 H Creatinine 1.39 H Est GFR ( Amer) > 60 Est GFR (Non-Af Amer) 53 L Glucose 93 Calcium 9.0 09/17/17 23:38 Sputum Gram Stain - Final 09/17/17 23:38 Sputum Sputum Culture - Final NORMAL PONOAM 09/17/17 09/19/17 15:15 05:15 Troponin I < 0.012 NT-Pro-B Natriuret Pep 59493 H Impressions: Chest X-Ray 09/17/17 08:41 IMPRESSION: Increase in right pleural effusion and right middle/lower lobe consolidation New trace left pleural effusion and left basilar airspace disease Plan Time Spent: Greater than 30 Minutes
[2017-09-21] MEDS ORDERED: DIGOXIN 0.125 MG TABLET PO ONE (14:30)
[2017-09-21] MEDS ORDERED: IRON SUCROSE COMPLEX INJ/PF 100 MG/5 ML SDV IV ONE (15:00)
[2017-09-21 17:25] VITALS: BP 118/70
[2017-09-22] MEDS ORDERED: DIGOXIN 0.125 MG TABLET PO SCH (10:00)
[2017-09-22] MEDS ORDERED: LEVOFLOXACIN 500 MG TABLET PO SCH (10:00)
== END 2017-09-21 17:49 | disposition home or self-care (01) | DRG 304 ==
LOC: ER 08:09 → UNDOADMIN 11:07 → EH 11:07 → 4S 11:46 → EH 12:28 → 4S 12:28
PROVIDERS: ADMIT Internal Medicine; ATTEND Internal Medicine
PROC: 3E0F73Z Introduction of Anti-inflammatory into Respiratory Tract, Via Natural or Artificial Opening (ICD-10-PCS; 2017-09-17)
PROC: 5A09357 Assistance with Respiratory Ventilation, Less than 24 Consecutive Hours, Continuous Positive Airway Pressure (ICD-10-PCS; principal; 2017-09-18)
DX: I13.10 Hypertensive heart and chronic kidney disease without heart failure, with stage 1 through stage 4 chronic kidney disease, or unspecified chronic kidney disease (principal); J18.9 Pneumonia, unspecified organism; I50.43 Acute on chronic combined systolic (congestive) and diastolic (congestive) heart failure; I42.9 Cardiomyopathy, unspecified; N17.9 Acute kidney failure, unspecified; J96.10 Chronic respiratory failure, unspecified whether with hypoxia or hypercapnia; J44.9 Chronic obstructive pulmonary disease, unspecified; D63.1 Anemia in chronic kidney disease; N18.3 Chronic kidney disease, stage 3 (moderate); E11.22 Type 2 diabetes mellitus with diabetic chronic kidney disease; G89.29 Other chronic pain; I25.10 Atherosclerotic heart disease of native coronary artery without angina pectoris; E78.5 Hyperlipidemia, unspecified; K21.9 Gastro-esophageal reflux disease without esophagitis; M19.90 Unspecified osteoarthritis, unspecified site; E11.51 Type 2 diabetes mellitus with diabetic peripheral angiopathy without gangrene; E87.5 Hyperkalemia; F17.210 Nicotine dependence, cigarettes, uncomplicated; D50.9 Iron deficiency anemia, unspecified; Z91.14 Patient's other noncompliance with medication regimen; Z79.82 Long term (current) use of aspirin; Z79.899 Other long term (current) drug therapy; Z99.81 Dependence on supplemental oxygen; Z99.3 Dependence on wheelchair; I25.2 Old myocardial infarction; Z86.14 Personal history of Methicillin resistant Staphylococcus aureus infection; Z82.3 Family history of stroke; Z83.3 Family history of diabetes mellitus
CPT/HCPCS: 36415; 71020; 80048; 80053; 82607; 82728; 82746; 82803; 82962; 83540; 83550; 83605; 83735; 83880; 84466; 84484; 85025; 85027; 85045; 87040; 87070; 87205; 93005; 93010; 93306; 94640; 96361; 96365; 96375; 99285; J1756; J1940; J1956; J3490; J7040; J7620

== ENCOUNTER 2017-10-16 16:44 | Emergency (ER) | payer MEDICAID ==
--- NOTE | 2017-10-16 17:41 | ER Document Report ---
ED Respiratory Problem - General Stated Complaint: TROUBLE BREATHING Time Seen by Provider: 10/16/17 17:19 Notes: Patient says he is having difficulty breathing and has a history of congestive heart failure diagnosed about a year ago. His current difficulty breathing began a couple of days ago and is getting worse. It is worsened by him laying down. He says he was just in the hospital here about a month ago and was told he needs a defibrillator. Currently, he wears a life vest. Patient is on home O2. PMH: Hypertension, high cholesterol, a couple of acute MIs, CHF. TRAVEL OUTSIDE OF THE [place] IN LAST 30 DAYS: No - Related Data Allergies/Adverse Reactions: No Known Allergies Allergy (Verified 09/17/17 08:15) Past Medical History - Social History Smoking Status: Current Every Day Smoker Family History: Reviewed & Not Pertinent, CVA, DM - Past Medical History Cardiac Medical History: Reports: Hx Congestive Heart Failure, Hx Coronary Artery Disease, Hx Heart Attack - x 2, Hx Hypercholesterolemia - Possible, Hx Hypertension Pulmonary Medical History: Reports: Hx COPD, Hx Respiratory Failure - Oxygen dependent Endocrine Medical History: Reports: Hx Diabetes Mellitus Type 1, Hx Diabetes Mellitus Type 2 GI Medical History: Reports: Hx Gastroesophageal Reflux Disease Musculoskeltal Medical History: Reports Hx Arthritis, Reports Hx Musculoskeletal Deformity, Reports Hx Musculoskeletal Trauma Skin Medical History: Reports Hx Cellulitis, Reports Hx MRSA Traumatic Medical History: Reports: Hx Fractures - Left arm and foot Infectious Medical History: Reports: Hx MRSA Past Surgical History: Reports: Hx Orthopedic Surgery - Left forearm - Immunizations Hx Diphtheria, Pertussis, Tetanus Vaccination: Yes Review of Systems - Review of Systems Notes: REVIEW OF SYSTEMS: CONSTITUTIONAL : Denies fever. EENT: Denies eye, ear, nose or mouth or throat pain or other symptoms. CARDIOVASCULAR: Denies chest pain. RESPIRATORY: Denies cough, chest congestion, but complains of shortness of breath. See HPI. GASTROINTESTINAL: Denies abdominal pain or nausea, vomiting, or diarrhea. GENITOURINARY: Denies difficulty or painful urinating, urinary frequency, blood in urine. MUSCULOSKELETAL: Denies back or neck pain. Denies joint pain or swelling. Denies ankle swelling. SKIN: Denies rash or skin lesions. NEUROLOGICAL: Denies LOC or altered mental status. Denies headache. Denies sensory loss or motor deficits. ALL OTHER SYSTEMS REVIEWED AND NEGATIVE. Physical Exam - Vital signs Vitals: Resp Pulse Ox 19 100 10/16/17 17:46 10/16/17 17:46 Interpretation: Normal, Other - On home O2. Notes: PHYSICAL EXAMINATION: GENERAL: Well-appearing, in no acute distress. HEAD: Atraumatic, normocephalic. EYES: Pupils equal round and reactive to light, extraocular movements intact. ENT: oropharynx clear without exudates. Moist mucous membranes. O2 in place by nasal cannula. NECK: Normal range of motion, supple. LUNGS: Breath sounds clear and equal bilaterally. Patient has on a "Life Vest". HEART: Regular rate and rhythm without murmurs. ABDOMEN: Soft, nontender. No guarding or rebound. BACK: No tenderness throughout entire back. EXTREMITIES: Normal range of motion without pain. No pitting edema of either pretibial region. NEUROLOGICAL: Normal speech, normal gait. Normal sensory, motor, and reflex exams. Awake, alert, and oriented x3. Cranial nerves normal. PSYCH: Normal mood, normal affect. SKIN: Warm, dry, no rashes. - Notes Notes: PHYSICAL EXAMINATION: GENERAL: Well-appearing, in no acute distress. On oxygen. O2 sat 100%. HEAD: Atraumatic, normocephalic. EYES: Pupils equal round and reactive to light, extraocular movements intact. ENT: oropharynx clear without exudates. Moist mucous membranes. NECK: Normal range of motion, supple. LUNGS: Breath sounds clear and equal bilaterally. Patient is wearing a life vest covering most of the back. HEART: Regular rate and rhythm without murmurs. ABDOMEN: Soft, nontender. No guarding or rebound. BACK: No tenderness throughout entire back. EXTREMITIES: Normal range of motion without pain. Minimal edema of the dorsal aspects of both feet, but no other significant edematous fluid collection. NEUROLOGICAL: Normal speech, normal gait. Normal sensory, motor, and reflex exams. Awake, alert, and oriented x3. Cranial nerves normal. PSYCH: Normal mood, normal affect. SKIN: Warm, dry, no rashes. Course - Re-evaluation Re-evalutation: 10/16/17 19:39 I am going to treat this patient as if he has a pneumonia because that is in the differential. This could also be failure and he is being advised to take an extra of his Lasix pills each day for the next 3 days. Patient will be given 500 of Zithromax here in the emergency department and a prescription for another 4 pills to take in the coming 4 days. - Vital Signs Vital signs: Temp Pulse Resp BP Pulse Ox 20 129/76 H 100 10/16/17 18:01 10/16/17 18:00 10/16/17 18:01 - Laboratory Result Diagrams: 10/16/17 17:12 10/16/17 17:12 Laboratory results interpreted by me: 10/16/17 10/16/17 10/16/17 17:12 17:12 17:12 RBC 3.65 L Hgb 8.9 L Hct 27.4 L MCV 75 L MCH 24.4 L RDW 19.9 H BUN 34 H Glucose 167 H ALT 18 L NT-Pro-B Natriuret Pep 89484 H BNP value noted. - Diagnostic Test Radiology reviewed: Image reviewed, Reports reviewed - Chest x-ray shows a small right pleural effusion or possible pneumonia. - EKG Interpretation by Me EKG shows normal: Sinus rhythm Rate: Normal Rhythm: NSR Additional EKG results interpreted by me: 10/16/17 19:[address] changes versus ischemia of the precordial and inferior leads. Discharge - Discharge Clinical Impression: Dyspnea, CHF (congestive heart failure), Pneumonia Condition: Stable Disposition: HOME, SELF-CARE Additional Instructions: Dyspnea, Nonspecific You were evaluated for shortness of breath, or dyspnea. Dyspnea has many causes, and some are more serious than others. Sometimes it's impossible to diagnose the cause of dyspnea with the tests that are available on an emergency basis. Based on our evaluation today, you do not need hospitalization now. We found no evidence of pneumonia, collapsed lung, blood clots in the lung, tumors , or heart failure. Causes of non-specific dyspnea can include asthma or bronchospasm, hyperventilation, emotional distress, heart disease, emphysema, fibrosis of the lung, and stiffness of the chest wall. In healthy individuals with a single episode, it's sometimes reasonable to do nothing but wait to see if the problem occurs again. Additional tests used to evaluate dyspnea can include cardiac stress testing, echocardiography, pulmonary function testing, CAT scan of the chest, bronchoscopy or pulmonary biopsy. Return if shortness of breath persists or worsens, or if you develop chest pain, fever, cough, confusion, or fainting. Congestive Heart Failure You have been diagnosed as having congestive heart failure (CHF). CHF occurs when the heart is unable to pump blood efficiently, leading to fluid buildup in the veins and lungs. Typical symptoms are swelling of the legs, shortness of breath on minor exertion, and fatigue. CHF is treated with salt restriction, medicine to eliminate excess water and salt from the body, and medication to help the heart contract more efficiently. Eliminate added salt and salty foods in your diet. Decrease your activity until excess fluid has been eliminated. It will also be helpful to raise the head of your bed so you can sleep more easily. Keep a daily record of your weight. This will help your physician monitor your progress. Once extra water has been eliminated, light aerobic exercise daily -- such as walking -- will be helpful (unless your physician has told you to restrict activity for other reasons). Be sure to follow up with the physician as instructed. Contact the doctor at once if you worsen in any way. Take an extra furosemide tablet 40 mg a day for the next 3 days. Possible PNEUMONIA: Your examination indicates that you have pneumonia. This is an infection of the lung tissue, usually caused by bacteria or a virus. Symptoms include cough, fever, shaking chills, chest pain, shortness of breath, and coughing up bloody sputum. Treatment for bacterial pneumonia includes rest, antibiotics for 10 to 14 days, increasing your clear liquid intake, a cool mist humidifier at your bedside, and fever medication. Often, a repeat chest X-ray is performed in a few weeks--even if you feel better--to ascertain whether the infection has completely resolved and no underlying lung problem is present. You should call the physician if you develop persistent vomiting, high fever that does not respond to fever medication, increasing shortness of breath , confusion, or lethargy. Also, failure to improve within two to three days is an indication for re-examination. AZITHROMYCIN: Azithromycin (Zithromax) is a broad spectrum antibiotic in the same class as erythromycin. It can treat a variety of bacterial infections, but is most frequently used for respiratory infections. Azithromycin is extremely long-lasting. It accumulates in body tissues and continues to kill bacteria for many days. In order to improve absorption, Azithromycin should be taken at least one hour before or two hours after a meal. It does not have the same strong tendency to upset the stomach as erythromycin and is usually very well tolerated. Patients who have had a rash or other true allergic reactions to erythromycin should not take this medication. Call if you develop gastrointestinal distress, severe diarrhea, rash, hives, itching, or shortness of breath. These maximum recommended dosages are slightly higher than the dosages written on the product container, but these dosages are very safe and below the toxic dosage for acetaminophen. 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 Stop Smoking You should stop smoking. The tar and chemicals in cigarette smoke are harmful. Smoking has been shown to cause: Emphysema and chronic bronchitis Lung cancer Cancer of the mouth, larynx, stomach, and pancreas Heart disease and stroke Stillbirths and miscarriage Premature aging In addition, smoking increases the chances of respiratory infections and ear infections in children of smokers, and increases the risk of cancer in persons exposed to second-hand smoke. Classes are available to help you stop smoking. If you are serious about wanting to quit, we can help arrange this therapy for you, or you can contact the local lung or cancer association. FOLLOW-UP CARE: If you have been referred to a physician for follow-up care, call the physician s office for an appointment as you were instructed or within the next two days. If you experience worsening or a significant change in your symptoms, notify the physician immediately or return to the Emergency Department at any time for re-evaluation. Prescriptions: Azithromycin 250 mg PO DAILY #4 tablet Referrals: CHARITY TOURE DO [Primary Care Provider] - Follow up as needed
[2017-10-16 17:43] LABS: ABSOLUTE BASOPHILS # (AUTO) 0.1 10^3/uL (0.0-0.2); ABSOLUTE EOSINOPHILS # (AUTO) 0.3 10^3/uL (0.0-0.6); ABSOLUTE LYMPHOCYTES (AUTO) 1.3 10^3/uL (0.5-4.7); ABSOLUTE MONOCYTES (AUTO) 0.8 10^3/uL (0.1-1.4); ABSOLUTE NEUT (AUTO) 5.1 10^3/uL (1.7-8.2); BASOPHILS % (AUTO) 1.3 % (0-2); EOSINOPHILS % (AUTO) 3.8 % (0-6); HEMATOCRIT 27.4 % (37.9-51.0); HEMOGLOBIN 8.9 g/dL (13.5-17.0); HGB HCT DIFFERENCE -0.7; LYMPHOCYTES % (AUTO) 17.1 % (13-45); MEAN CORPUSCULAR HEMOGLOBIN 24.4 pg (27.0-33.4); MEAN CORPUSCULAR HGB CONC 32.5 g/dL (32.0-36.0); MEAN CORPUSCULAR VOLUME 75 fl (80-97); MONOCYTES % (AUTO) 10.1 % (3-13); RED BLOOD COUNT 3.65 10^6/uL (4.35-5.55); RED CELL DISTRIBUTION WIDTH 19.9 % (11.5-14.0); SEGMENTED NEUTROPHILS % (AUTO) 67.7 % (42-78); WHITE BLOOD COUNT 7.6 10^3/uL (4.0-10.5)
[2017-10-16 17:51] LABS: ALANINE AMINOTRANSFERASE 18 U/L (21-72); ALKALINE PHOSPHATASE 122 U/L (38-126); ANION GAP 15 (5-19); ASPARTATE AMINO TRANSFERASE 21 U/L (17-59); BILIRUBIN,DIRECT 0.4 mg/dL (0.0-0.4); BILIRUBIN,TOTAL 0.8 mg/dL (0.2-1.3); BLOOD UREA NITROGEN 34 mg/dL (7-20); CALCIUM 9.4 mg/dL (8.4-10.2); CARBON DIOXIDE 22 mmol/L (22-30); CHLORIDE 104 mmol/L (98-107); CREATININE RESULT 1.12 mg/dL (0.52-1.25); GLUCOSE 167 mg/dL (75-110); POTASSIUM 4.8 mmol/L (3.6-5.0); SODIUM 140.5 mmol/L (137-145); TOTAL PROTEIN 7.3 g/dL (6.3-8.2)
[2017-10-16 18:02] LABS: CREATINE KINASE MB 2.82 ng/mL (<4.55)
[2017-10-16 18:09] LABS: TROPONIN I < 0.012 ng/mL
--- NOTE | 2017-10-16 18:22 | RADIOLOGY REPORT (SQ) ---
EXAM DESCRIPTION: CHEST PA/LAT COMPLETED DATE/TIME: 10/16/2017 6:13 pm REASON FOR STUDY: SOB, Hx CHF COMPARISON: 09/17/2017 EXAM PARAMETERS: NUMBER OF VIEWS: two views TECHNIQUE: Digital Frontal and Lateral radiographic views of the chest acquired. RADIATION DOSE: NA LIMITATIONS: none FINDINGS: LUNGS AND PLEURA: There is considerable opacification right base. The right pleural effus ion is suggested. MEDIASTINUM AND HILAR STRUCTURES: No masses or contour abnormalities. HEART AND VASCULAR STRUCTURES: Heart normal size. No evidence for failure. BONES: No acute findings. HARDWARE: Electronic device is positioned over the chest OTHER: No other significant finding. IMPRESSION: Possible right pleural effusion. Cannot exclude right lower lobe pneumonia. TECHNICAL DOCUMENTATION: JOB ID: [id number] [employer]- All Rights Reserved
[2017-10-16] MEDS ORDERED: AZITHROMYCIN 250 MG TABLET PO ONE (19:18)
[2017-10-16 21:17] VITALS: BP 129/77
--- NOTE | 2017-10-16 21:46 | EKG REPORT ---
SEVERITY:- ABNORMAL ECG - SINUS RHYTHM FIRST DEGREE AV BLOCK BORDERLINE RIGHT AXIS DEVIATION CONSIDER ANTEROSEPTAL INFARCT NONSPECIFIC REPOL ABNORMALITY, LATERAL LEADS : Confirmed by: Asuncion Addison 16-Oct-2017 21:45:48
== END 2017-10-16 21:05 | disposition home or self-care (01) ==
LOC: ER 16:44
DX: J18.9 Pneumonia, unspecified organism (principal); I50.9 Heart failure, unspecified; R06.00 Dyspnea, unspecified; F17.200 Nicotine dependence, unspecified, uncomplicated
CPT/HCPCS: 93005; 99285; 36415; 82553; 85025; 80053; 84484; 83880; 71020; 93010; Q0144

== ENCOUNTER 2017-11-30 08:35 | Day surgery (SDC) | payer MEDICAID ==
[~2017-11-30 08:35] MED LIST: PROPOFOL INJ 200 MG/20 ML VIAL IV ONE
[2017-11-30] MEDS ORDERED: CARVEDILOL 3.125 MG TABLET PO ONE (10:00)
[2017-11-30] MEDS ORDERED: PROPOFOL INJ 200 MG/20 ML VIAL IV ONE (10:29)
[2017-11-30 10:59] VITALS: BP 104/65
--- NOTE | 2017-11-30 12:51 | Operative Report ---
Operative Report DATE OF SURGERY: 11/30/17 Operative Report: The risks, benefits and alternatives of the procedure including risks of bleeding, perforation requiring surgery are explained to the patient in detail and informed consent is obtained. Patient is taken back to the endoscopy suite and placed in the left, lateral decubital position. Timeout was called. Propofol medications administered. A rectal examination is done which did not reveal any masses, tears or fissures. An Olympus videoscope was inserted into the patient's rectum. The scope was then carefully advanced all the way to the cecum. The cecum was identified by the usual anatomical landmarks including the ileocecal valve as well as the appendiceal office. Photodocumentation was obtained. The scope was then sequentially pulled back via the various segments of the colon including the ascending colon, hepatic flexure, transverse colon, splenic flexure, descending colon and finally to the rectosigmoid portions of the colon. Retroflexion maneuver was performed. The risks benefits and alternatives of the procedure explained to the patient in detail and informed consent is obtained.A GIF Olympus video scope was inserted into the patient's mouth and hypopharynx, the esophagus is identified intubated and insufflated ,the scope was then advanced through the esophagus stomach and duodenum, retroflexion maneuver is done, the esophagus stomach and first and second portions of the duodenum examined PREOPERATIVE DIAGNOSIS: Weight loss, colorectal cancer screening, dysphagia POSTOPERATIVE DIAGNOSIS: Cecal nodule noted, status post biopsy. Broad base polyp noted at approximately 20-25 cm status post biopsy and tattooed with Cynthia ink. If results are positive for malignancy referral to surgery will be made. Gastritis status post biopsy rule out Helicobacter pylori. Gastric AVM that was ablated in situ OPERATION: Colonoscopy with submucosal injection. Colonoscopy with biopsy. EGD with ablation SURGEON: DAYA SWANN ANESTHESIA: LMAC TISSUE REMOVED OR ALTERED: As noted above. COMPLICATIONS: None. ESTIMATED BLOOD LOSS: None. INTRAOPERATIVE FINDINGS: As noted above. PROCEDURE: Patient tolerated procedure well. No immediate postprocedure complications are noted. Patient discharged in good condition. Discharge date 11/30/2017. Discharge diet: Regular. Discharge activity: Regular. 2-3 week follow-up to discuss findings. surgical referral needed if biopsies are positive. Patient is instructed to call the office or proceed to the emergency room should there be any further problems or questions. We will wait on pathology. Surveillance colonoscopy to be determined following pathology and possible need for surgery; but usually one year at the minimum
== END 2017-11-30 11:00 | disposition home or self-care (01) ==
LOC: END 08:35
PROVIDERS: ATTEND Internal Medicine Gastroenterology
PROC: 0DB68ZX Excision of Stomach, Via Natural or Artificial Opening Endoscopic, Diagnostic (ICD-10-PCS; principal; 2017-11-30 10:00)
PROC: 0DBH8ZX Excision of Cecum, Via Natural or Artificial Opening Endoscopic, Diagnostic (ICD-10-PCS; 2017-11-30 10:00)
PROC: 0DBE8ZX Excision of Large Intestine, Via Natural or Artificial Opening Endoscopic, Diagnostic (ICD-10-PCS; 2017-11-30 10:00)
PROC: 0D568ZZ Destruction of Stomach, Via Natural or Artificial Opening Endoscopic (ICD-10-PCS; 2017-11-30 10:00)
DX: Z12.11 Encounter for screening for malignant neoplasm of colon (principal); D01.0 Carcinoma in situ of colon; D12.0 Benign neoplasm of cecum; K29.50 Unspecified chronic gastritis without bleeding; Q27.33 Arteriovenous malformation of digestive system vessel
CPT/HCPCS: 43270; 43239; 45380; 45381; 82962; 88342 ×2; 88305 ×2; J2704; J3490; 813

== ENCOUNTER 2017-12-07 08:12 | Day surgery (SDC) | payer MEDICAID ==
[2017-12-07 09:15] VITALS: BP 99/55
--- NOTE | 2017-12-07 13:43 | Operative Report ---
Operative Report DATE OF SURGERY: 12/07/17 Operative Report: The risks, benefits and alternatives of the procedure including risks of bleeding, perforation requiring surgery are explained to the patient detail and informed consent was obtained. Patient was taken back to the endoscopy suite and placed in the left, lateral decubital position. Timeout was called. Propofol medications administered. A rectal examination is done which did not reveal any masses, tears or fissures. An Olympus videoscope was inserted into the patient's rectum. The scope was then carefully advanced all the way to the cecum. The cecum was identified by the usual anatomical landmarks including the ileocecal valve as well as the appendiceal office. Photodocumentation was obtained. Scope was then sequentially pulled back via the various segments of the colon including the ascending colon, hepatic flexure, transverse colon, splenic flexure, descending colon finding the rectosigmoid portions of the colon. Retroflexion maneuvers performed. PREOPERATIVE DIAGNOSIS: Patient with previous colonoscopy done. Noted to have a pedunculated sessile serrated polyp noted in the cecum that requires removal. POSTOPERATIVE DIAGNOSIS: Polyp removed in the cecum via snare polypectomy. And retrieved. Endo Clip placement to reduce risk of post polypectomy bleeding. OPERATION: Colonoscopy with snare polypectomy SURGEON: DAYA SWANN ANESTHESIA: LMAC TISSUE REMOVED OR ALTERED: As noted above. COMPLICATIONS: None. ESTIMATED BLOOD LOSS: None. INTRAOPERATIVE FINDINGS: As noted above. PROCEDURE: Patient tolerated procedure well. No immediate postprocedure complications are noted. Patient discharged in good condition. Discharge date 12/07/2017. Discharge diet: Regular. Discharge activity: Regular. 2-3 week follow-up to discuss findings. 3-5 year surveillance colonoscopy. Patient is instructed call the office or proceed to the emergency room should there be any further problems or questions. With regards to the left sided lesion that has been tattooed surgical referral has been made for the patient. He will likely need a left hemicolectomy.
== END 2017-12-07 09:20 | disposition home or self-care (01) ==
LOC: END 08:12
PROVIDERS: ATTEND Internal Medicine Gastroenterology
PROC: 0DBH8ZX Excision of Cecum, Via Natural or Artificial Opening Endoscopic, Diagnostic (ICD-10-PCS; principal; 2017-12-07 08:00)
DX: Z12.11 Encounter for screening for malignant neoplasm of colon (principal); D12.0 Benign neoplasm of cecum; J45.909 Unspecified asthma, uncomplicated; I10 Essential (primary) hypertension; I25.2 Old myocardial infarction; I25.10 Atherosclerotic heart disease of native coronary artery without angina pectoris; E11.9 Type 2 diabetes mellitus without complications; D64.9 Anemia, unspecified; F17.210 Nicotine dependence, cigarettes, uncomplicated; I49.9 Cardiac arrhythmia, unspecified
CPT/HCPCS: 45385; 82962; 88305 ×2; J2704; 811